=== PATIENT | male | born 1955 | race Caucasian/White ===

== ENCOUNTER 2020-10-26 12:10 | Outpatient (REF) | payer MEDICARE, OTHER, SELFPAY ==
[2020-10-26 13:57] LABS: Estimated Average Glucose 123 mg/dL; Hemoglobin A1c % 5.9 %
[2020-10-26 14:15] LABS: Anion Gap 12 (12-20); Blood Urea Nitrogen 21 mg/dL (9-16); Calcium 8.9 mg/dL (8.4-10.2); Carbon Dioxide 27 mmol/L (22-29); Chloride 105 mmol/L (96-108); Estimated Glomerular Filt Rate > 60; Glucose Random 92 mg/dL (60-115); Potassium 3.8 mmol/l (3.3-5.1); Sodium 140 mmol/L (135-145)
== END 2020-10-26 12:11 | disposition home or self-care (01) ==
LOC: HO.10HDL 12:10
PROVIDERS: PCP Internal Medicine; Visit Provider Internal Medicine
DX: I10 Essential (primary) hypertension (principal); R73.03 Prediabetes
CPT/HCPCS: 80048; 83036

== ENCOUNTER 2021-04-27 07:35 | Outpatient (REF) | payer MEDICARE, OTHER, SELFPAY ==
[2021-04-27 08:21] LABS: MANUAL DIFF FLAG NO
[2021-04-27 08:30] LABS: Basophils Absolute Auto 0.1 X10*3/uL (0.0-0.2); Basophils Percent Auto 0.7 % (0-2); Eosinophils Absolute Auto 0.1 X10*3/uL (0.0-0.4); Eosinophils Percent Auto 1.9 % (0-4); Hematocrit 40.8 % (42-52); Hemoglobin 13.4 g/dl (14.0-18.0); Imm Gran Abs Auto 0.02 X10*3/uL (0.00-0.03); Imm Gran Pct Auto 0.3 % (0.0-0.4); Lymphocytes Absolute Auto 1.3 X10*3/uL (1.2-4.9); Mean Corpuscular HGB Conc 32.8 g/dl (31.0-36.0); Mean Corpuscular Hemoglobin 29.6 pg (27.0-33.0); Mean Corpuscular Volume 90.3 fL (80-98); Mean Platelet Volume 10.5 fL (9.4-12.4); Monocytes Absolute Auto 0.7 X10*3/uL (0.1-1.2); Monocytes Percent Auto 9.4 % (2-11); Neutrophils Absolute Auto 5.1 X10*3/uL (2.0-8.3); Neutrophils Percent Auto 69.7 % (45-73); Platelet Count 231 X10*3/uL (160-400); Red Blood Count 4.52 X10*6/uL (4.60-5.80); Red Cell Distribution Width 12.7 % (11.0-16.0); White Blood Count 7.2 X10*3/uL (4.8-10.8)
[2021-04-27 08:50] LABS: Alanine Aminotransferase 26 U/L (0-40); Albumin Level 4.1 g/dL (3.5-5.0); Alkaline Phosphatase 115 U/L (39-117); Anion Gap 12 (12-20); Aspartate Amino Transferase 25 U/L (5-37); Bilirubin Total 0.4 mg/dL (0.0-1.0); Blood Urea Nitrogen 22 mg/dL (9-16); Calcium 9.4 mg/dL (8.4-10.2); Carbon Dioxide 26 mmol/L (22-29); Chloride 108 mmol/L (96-108); Cholesterol 168 mg/dL; Estimated Glomerular Filt Rate > 60; Glucose Random 112 mg/dL (60-115); HDL Cholesterol 38 mg/dL; LDL Cholesterol Calculated 74 mg/dl; Potassium 4.8 mmol/L (3.3-5.1); Sodium 141 mmol/L (135-145); Triglycerides 280 mg/dL
== END 2021-04-27 07:36 | disposition home or self-care (01) ==
LOC: HO.LAB 07:35
PROVIDERS: PCP Internal Medicine; Visit Provider Internal Medicine
DX: I10 Essential (primary) hypertension (principal); E78.00 Pure hypercholesterolemia, unspecified; K21.9 Gastro-esophageal reflux disease without esophagitis
CPT/HCPCS: 36415; 80053; 80061; 85025

== ENCOUNTER 2021-08-07 06:09 | Outpatient (REF) | payer MEDICARE, OTHER, SELFPAY ==
[2021-08-07 07:45] LABS: Alanine Aminotransferase 28 U/L (0-40); Alkaline Phosphatase 83 U/L (39-117); Anion Gap 11 (12-20); Aspartate Amino Transferase 21 U/L (5-37); Bilirubin Total 0.7 mg/dL (0.0-1.0); Blood Urea Nitrogen 19 mg/dL (9-16); Calcium 9.1 mg/dL (8.4-10.2); Carbon Dioxide 28 mmol/L (22-29); Chloride 108 mmol/L (96-108); Cholesterol 147 mg/dL; Estimated Glomerular Filt Rate > 60; Glucose Fasting 106 mg/dL (60-99); HDL Cholesterol 34 mg/dL; LDL Cholesterol Calculated 66 mg/dl; Sodium 143 mmol/L (135-145); Total Protein 5.8 g/dL (6.5-8.0); Triglycerides 239 mg/dL
== END 2021-08-07 06:10 | disposition home or self-care (01) ==
LOC: HO.LAB 06:09
PROVIDERS: PCP Internal Medicine; Visit Provider Internal Medicine
DX: E78.5 Hyperlipidemia, unspecified (principal)
CPT/HCPCS: 36415; 80053; 80061

== ENCOUNTER 2022-02-26 07:08 | Outpatient (REF) | payer MEDICARE, OTHER, SELFPAY ==
[2022-02-26 07:59] LABS: Alanine Aminotransferase 29 U/L (0-40); Albumin Level 4.1 g/dL (3.5-5.0); Alkaline Phosphatase 90 U/L (39-117); Anion Gap 10 (12-20); Aspartate Amino Transferase 22 U/L (5-37); Bilirubin Total 0.6 mg/dL (0.0-1.0); Blood Urea Nitrogen 17 mg/dL (9-16); Calcium 9.3 mg/dL (8.4-10.2); Carbon Dioxide 28 mmol/L (22-29); Chloride 108 mmol/L (96-108); Cholesterol 163 mg/dL; Estimated Glomerular Filt Rate > 60; Glucose Fasting 127 mg/dL (60-99); HDL Cholesterol 36 mg/dL; LDL Cholesterol Calculated 81 mg/dl; Potassium 4.4 mmol/L (3.3-5.1); Sodium 142 mmol/L (135-145); Triglycerides 234 mg/dL
== END 2022-02-26 07:09 | disposition home or self-care (01) ==
LOC: HO.LAB 07:08
PROVIDERS: PCP Internal Medicine; Visit Provider Internal Medicine
DX: I10 Essential (primary) hypertension (principal); E78.5 Hyperlipidemia, unspecified; K21.9 Gastro-esophageal reflux disease without esophagitis
CPT/HCPCS: 36415; 80053; 80061

== ENCOUNTER 2022-05-29 07:42 | Outpatient (REF) | payer MEDICARE, OTHER, SELFPAY ==
[2022-05-29 10:56] LABS: Estimated Average Glucose 117 mg/dL; Hemoglobin A1c % 5.7 %
[2022-05-29 11:01] LABS: Alanine Aminotransferase 29 U/L (0-40); Albumin Level 4.1 g/dL (3.5-5.0); Alkaline Phosphatase 89 U/L (39-117); Anion Gap 13 (12-20); Aspartate Amino Transferase 22 U/L (5-37); Bilirubin Total 0.4 mg/dL (0.0-1.0); Blood Urea Nitrogen 22 mg/dL (9-16); Calcium 9.1 mg/dL (8.4-10.2); Carbon Dioxide 24 mmol/L (22-29); Chloride 107 mmol/L (96-108); Estimated Glomerular Filt Rate > 60; Glucose Fasting 121 mg/dL (60-99); Potassium 4.2 mmol/L (3.3-5.1); Sodium 140 mmol/L (135-145); Total Protein 6.1 g/dL (6.5-8.0)
== END 2022-05-29 07:43 | disposition home or self-care (01) ==
LOC: HO.10HDL 07:42
PROVIDERS: Visit Provider Internal Medicine
DX: I10 Essential (primary) hypertension (principal); E78.00 Pure hypercholesterolemia, unspecified; R73.03 Prediabetes
CPT/HCPCS: 36415; 80053; 83036

== ENCOUNTER 2022-11-30 10:04 | Outpatient (REF) | payer MEDICARE, OTHER, SELFPAY ==
[2022-11-30 13:38] LABS: MANUAL DIFF FLAG NO
[2022-11-30 13:41] LABS: Basophils Absolute Auto 0.1 X10*3/uL (0.0-0.2); Basophils Percent Auto 0.7 % (0-2); Eosinophils Absolute Auto 0.1 X10*3/uL (0.0-0.4); Eosinophils Percent Auto 1.9 % (0-4); Hematocrit 41.2 % (42.0-52.0); Hemoglobin 13.6 g/dl (14.0-18.0); Imm Gran Abs Auto 0.03 X10*3/uL (0.00-0.03); Imm Gran Pct Auto 0.4 % (0.0-0.4); Lymphocytes Absolute Auto 1.4 X10*3/uL (1.2-4.9); Lymphocytes Percent Auto 19.4 % (20-40); Mean Corpuscular Hemoglobin 29.4 pg (27.0-33.0); Mean Platelet Volume 11.1 fL (9.4-12.4); Monocytes Absolute Auto 0.8 X10*3/uL (0.1-1.2); Monocytes Percent Auto 10.5 % (2-11); Neutrophils Absolute Auto 4.9 x10*3/uL (2.0-8.3); Neutrophils Percent Auto 67.1 % (45-73); Platelet Count 268 X10*3/uL (160-400); Red Blood Count 4.63 X10*6/uL (4.60-5.80); Red Cell Distribution Width 12.4 % (11.0-16.0); White Blood Count 7.2 X10*3/uL (4.8-10.8)
[2022-11-30 13:56] LABS: Estimated Average Glucose 126 mg/dL; Hemoglobin A1C 151.6877 umol/L
[2022-11-30 14:07] LABS: Anion Gap 13 (12-20); Blood Urea Nitrogen 21 mg/dL (9-16); Calcium 9.4 mg/dL (8.4-10.2); Carbon Dioxide 27 mmol/L (22-29); Chloride 107 mmol/L (96-108); Estimated Glomerular Filt Rate > 60; Glucose Random 107 mg/dL (60-115); Potassium 4.7 mmol/L (3.3-5.1); Sodium 142 mmol/L (135-145)
[2022-11-30 14:15] LABS: Thyroid Stimulating Hormone 1.93 uIU/mL (0.32-4.0)
[2022-11-30 14:25] LABS: Vitamin B12 489 pg/mL (200-900)
== END 2022-11-30 10:05 | disposition home or self-care (01) ==
LOC: HO.10HDL 10:04
PROVIDERS: Visit Provider Internal Medicine
DX: I10 Essential (primary) hypertension (principal); R53.83 Other fatigue; R73.03 Prediabetes; H92.02 Otalgia, left ear
CPT/HCPCS: 36415; 80048; 82607; 83036; 84443; 85025; 86140

== ENCOUNTER 2023-03-04 09:49 | Outpatient (REF) | payer MEDICARE, OTHER, SELFPAY ==
[2023-03-04 10:45] LABS: Estimated Average Glucose 128 mg/dL; Hemoglobin A1c % 6.1 %
[2023-03-04 11:07] LABS: Anion Gap 11 (12-20); Blood Urea Nitrogen 14 mg/dL (9-16); Calcium 8.8 mg/dL (8.4-10.2); Carbon Dioxide 26 mmol/L (22-29); Chloride 110 mmol/L (96-108); Estimated Glomerular Filt Rate > 60; Glucose Random 105 mg/dL (60-115); Potassium 4.6 mmol/L (3.3-5.1); Sodium 142 mmol/L (135-145)
== END 2023-03-04 09:50 | disposition home or self-care (01) ==
LOC: HO.10HDL 09:49
PROVIDERS: Visit Provider Internal Medicine
DX: I10 Essential (primary) hypertension (principal); R73.01 Impaired fasting glucose
CPT/HCPCS: 36415; 80048; 83036

== ENCOUNTER → 2023-06-25 13:47 | Outpatient (REF) | payer MEDICARE, OTHER, SELFPAY ==
--- NOTE | 2023-06-25 13:50 | CA_ITS ---
Transthoracic Echocardiogram Patient (Last, First, Middle): Andrea Wasserman E Gender: Male Date of : 1955 Age: 68 Procedure Date: 06/25/2023 Procedure Type: Transthoracic Echocardiogram Location: OP Height: 182.88 cm Weight: 112.49 kg BSA: 2.33 m2 Heart Rate: bpm BP: 140 / 92 mmHg Tag Meter Operator: AMADA Referring MD: Eliceo Garrison MD Symptoms: I10 HTN EDEMA Study Quality: Adequate with contrast ECG Rhythm: Sinus Conclusions: - The left ventricular systolic function is normal. The calculated ejection fraction is 63% by biplane method. - There is moderate septal and moderate basal asymmetric hypertrophy. - The left atrium is moderately dilated. - No obvious valvular pathology seen on this study. Findings Procedure Information Contrast agent, definity, is being given per protocol with complications as noted. The patient experienced back pain from contrast. Left Ventricle Normal left ventricular cavity size. There is mildly increased left ventricular wall thickness. The left ventricular systolic function is normal. The calculated ejection fraction is 63% by biplane method. There is no evidence of regional wall motion abnormalities. Evidence suggests grade I (mild) diastolic dysfunction. There is moderate septal and moderate basal asymmetric hypertrophy. Right Ventricle Normal right ventricular cavity size and systolic function. Atria The left atrium is moderately dilated. The right atrium is normal in size. Aortic Valve There is a normal trileaflet aortic valve. There is no aortic valve stenosis. There is trace (trivial) aortic valve regurgitation. Mitral Valve The mitral valve appears normal. There is trace mitral valve regurgitation. There is no mitral valve stenosis. Pulmonic Valve The pulmonic valve is likely normal. Tricuspid Valve There is trace tricuspid valve regurgitation. There is no evidence of pulmonary hypertension. Great Vessels The asc aorta is normal in size. Small plaque is seen in the sino tubular ridge. Venous The inferior vena cava is mildly dilated and collapses greater than 50% with inspiration. Pericardium/Pleural There is no evidence of pericardial effusion. Prior Study Comparison No significant change compared to prior study dated: 12/25/2003. Recommendations, Care & Conclusions No obvious valvular pathology seen on this study. Measurements 2D Linear Measurements IVSd: 1.30 0.6-0.9/0.6-1.0 cm LVIDd: 5.65 3.9-5.3/4.2-5.9 cm LVIDd Index: 2.42 2.4-3.2/2.2-3.1 cm/m2 LVIDs: 3.63 2.0-3.6 cm LVPWd: 1.05 0.7-1.1 cm LA Diam: 4.10 2.7-3.8/3.0-4.0 cm LAIDs Index: 1.76 1.5-2.3 cm/m2 LV Mass: 344.90 67-162/88-224 g LV Mass Index: 148.03 43-95/49-115 g/m2 LVOT Diam: 2.20 3.0+(-)1.3 cm 2D Systolic Function EF 4C: 55.10 >55% EF 2C: 68.50 >55% EF BiP: 62.70 >55% Mitral Valve MV Pk E: 0.56 MV PK A: 0.66 MV Decel Time: 301.00 E/A: 0.90 E'Lateral: 6.53 E'Medial: 5.66 E/E' Med: 9.90 E/E' Lat: 8.60 PHT: 88.00 MVA PHT: 2.50 Decel Llano: 1.86 Aortic Valve AoV Pk Tenzin: 1.14 AoV Mn Tenzin: 0.80 AoV VTI: 0.31 AoV Pk Grad: 5.00 Aov Mn Grad: 3.00 ANEUDY Cont.VTI: 3.34 LVOT LVOT Pk Tenzin: 1.08 LVOT Mn Tenzin: 0.74 LVOT VTI: 0.27 LVOT Pk Grad: 5.00 LVOT Mn Grad: 2.00 LVOT Diam: 2.20 LVOT Area: 3.80 Diastolic Function MV Pk E: 0.56 MV Pk A: 0.66 E/A: 0.90 E'Medial: 5.66 E/E' Med: 9.90 E' Laterial: 6.53 E/E' Lat: 8.60 Right Ventricle TAPSE (mm): 27.20 TVS' Tenzin: 16.00 Tricuspid Valve RA Press: 8.00 Great Vessels Aorta Sinus of Valsalva: 3.85 2.0-3.[address] Ridge: 3.03 1.7-3.4 cm Ao Asc: 3.70 2.1-3.4 cm Updated in Other Vendor System with Status of Final Dedrick Durán MD electronically signed on 06/26/2023 11:30:06 AM with status of Final
== END ==
LOC: HO.CARD 13:47
PROVIDERS: PCP Internal Medicine; Visit Provider Internal Medicine
DX: I10 Essential (primary) hypertension (principal); R60.0 Localized edema
CPT/HCPCS: 93306; Q9957

== ENCOUNTER → 2023-06-25 13:50 | Outpatient (BNV) | payer MEDICARE, OTHER, SELFPAY | PROVIDERS: PCP Internal Medicine; Visit Provider Internal Medicine | DX: I51.9 Heart disease, unspecified (principal) | CPT/HCPCS: 93306 ==

== ENCOUNTER 2023-10-16 09:06 | Outpatient (REF) | payer MEDICARE, OTHER, SELFPAY ==
[2023-10-16 10:52] LABS: Estimated Average Glucose 128 mg/dL; Hemoglobin A1c % 6.1 % (<6.0)
[2023-10-16 11:01] LABS: Anion Gap 10 (12-20); Blood Urea Nitrogen 19 mg/dL (9-16); Calcium 9.2 mg/dL (8.4-10.2); Carbon Dioxide 30 mmol/L (22-29); Chloride 104 mmol/L (96-108); Estimated Glomerular Filt Rate > 60; Glucose Random 123 mg/dL (60-115); Sodium 140 mmol/L (135-145)
== END 2023-10-16 09:07 | disposition home or self-care (01) ==
LOC: HO.10HDL 09:06
PROVIDERS: Visit Provider Internal Medicine
DX: I10 Essential (primary) hypertension (principal); R73.03 Prediabetes
CPT/HCPCS: 36415; 80048; 83036

== ENCOUNTER 2024-06-04 10:21 | Outpatient (REF) | payer MEDICARE, OTHER, SELFPAY ==
[2024-06-04 10:50] LABS: MANUAL DIFF FLAG NO
[2024-06-04 10:55] LABS: Basophils Absolute Auto 0.1 X10*3/uL (0.0-0.2); Basophils Percent Auto 1.2 % (0-2); Eosinophils Absolute Auto 0.1 X10*3/uL (0.0-0.4); Eosinophils Percent Auto 1.7 % (0-4); Hematocrit 40.2 % (42.0-52.0); Hemoglobin 13.9 g/dl (14.0-18.0); Imm Gran Abs Auto 0.03 X10*3/uL (0.00-0.03); Imm Gran Pct Auto 0.4 % (0.0-0.4); Lymphocytes Absolute Auto 1.6 X10*3/uL (1.2-4.9); Lymphocytes Percent Auto 20.8 % (20-40); Mean Corpuscular HGB Conc 34.6 g/dl (31.0-36.0); Mean Corpuscular Hemoglobin 30.6 pg (27.0-33.0); Mean Corpuscular Volume 88.5 fL (80.0-98.0); Mean Platelet Volume 10.3 fL (9.4-12.4); Monocytes Absolute Auto 0.8 X10*3/uL (0.1-1.2); Monocytes Percent Auto 10.1 % (2-11); Neutrophils Absolute Auto 5.1 x10*3/uL (2.0-8.3); Neutrophils Percent Auto 65.8 % (45-73); Platelet Count 235 X10*3/uL (160-400); Red Blood Count 4.54 X10*6/uL (4.60-5.80); Red Cell Distribution Width 13.3 % (11.0-16.0); White Blood Count 7.7 X10*3/uL (4.8-10.8)
[2024-06-04 11:01] LABS: Estimated Average Glucose 131 mg/dL; Hemoglobin A1c % 6.2 % (<6.0)
[2024-06-04 11:09] LABS: Anion Gap 13 (12-20); Blood Urea Nitrogen 23 mg/dL (9-16); Calcium 9.7 mg/dL (8.4-10.2); Carbon Dioxide 29 mmol/L (22-29); Chloride 105 mmol/L (96-108); Estimated Glomerular Filt Rate > 60; Glucose Random 109 mg/dL (60-115); Potassium 3.9 mmol/L (3.3-5.1); Sodium 143 mmol/L (135-145)
[2024-06-04 11:30] LABS: Creatinine Urine 111.34 mg/dL; Microalbum/Creatinine Ratio Ur 8.9 ug/mg cr (<30)
== END 2024-06-04 10:22 | disposition home or self-care (01) ==
LOC: HO.10HDL 10:21
PROVIDERS: Visit Provider Internal Medicine
DX: I10 Essential (primary) hypertension (principal); E78.00 Pure hypercholesterolemia, unspecified; R73.03 Prediabetes
CPT/HCPCS: 36415; 80048; 82043; 82570; 83036; 85025

== ENCOUNTER 2024-09-07 12:00 | Outpatient (REF) | payer MEDICARE, OTHER, SELFPAY ==
[2024-09-07 13:23] LABS: MANUAL DIFF FLAG NO
[2024-09-07 13:24] LABS: Appearance Urine Clear; Color Urine Yellow; Glucose Urine UA Negative (Negative); Leukocyte Esterase Urine Negative (Negative); Nitrite Urine Negative (Negative); Urine Blood Negative (Negative); Urine Ketones Negative (Negative); Urine Protein Negative (Neg-Trace)
[2024-09-07 13:32] LABS: Basophils Absolute Auto 0.1 X10*3/uL (0.0-0.2); Basophils Percent Auto 1.1 % (0-2); Eosinophils Absolute Auto 0.2 X10*3/uL (0.0-0.4); Eosinophils Percent Auto 2.1 % (0-4); Hematocrit 38.2 % (42.0-52.0); Hemoglobin 12.9 g/dl (14.0-18.0); Imm Gran Abs Auto 0.02 X10*3/uL (0.00-0.03); Imm Gran Pct Auto 0.3 % (0.0-0.4); Lymphocytes Absolute Auto 1.5 X10*3/uL (1.2-4.9); Mean Corpuscular HGB Conc 33.8 g/dl (31.0-36.0); Mean Corpuscular Hemoglobin 29.5 pg (27.0-33.0); Mean Corpuscular Volume 87.2 fL (80.0-98.0); Mean Platelet Volume 10.1 fL (9.4-12.4); Monocytes Absolute Auto 0.7 X10*3/uL (0.1-1.2); Monocytes Percent Auto 9.2 % (2-11); Neutrophils Absolute Auto 5.1 x10*3/uL (2.0-8.3); Neutrophils Percent Auto 67.3 % (45-73); Platelet Count 275 X10*3/uL (160-400); Red Blood Count 4.38 X10*6/uL (4.60-5.80); Red Cell Distribution Width 12.5 % (11.0-16.0); White Blood Count 7.5 X10*3/uL (4.8-10.8)
[2024-09-07 13:43] LABS: Estimated Average Glucose 137 mg/dL; Hemoglobin A1C 158.2599 umol/L; Hemoglobin A1c % 6.4 % (<6.0); Total Hemoglobin (HGBA1C) 3371.5849 umol/L
[2024-09-07 14:32] LABS: Alanine Aminotransferase 36 U/L (0-40); Alkaline Phosphatase 78 U/L (39-117); Anion Gap 11 (12-20); Aspartate Amino Transferase 27 U/L (5-37); Bilirubin Total 0.4 mg/dL (0.0-1.0); Blood Urea Nitrogen 23 mg/dL (9-16); Calcium 9.5 mg/dL (8.4-10.2); Carbon Dioxide 29 mmol/L (22-29); Chloride 107 mmol/L (96-108); Estimated Glomerular Filt Rate > 60; Glucose Random 123 mg/dL (60-115); Potassium 3.6 mmol/L (3.3-5.1); Sodium 143 mmol/L (135-145); Total Protein 6.2 g/dL (6.5-8.0)
[2024-09-07 14:54] LABS: Microalbumin Urine < 5.0 mg/L
== END 2024-09-07 12:01 | disposition home or self-care (01) ==
LOC: HO.10HDL 12:00
PROVIDERS: Visit Provider Internal Medicine
DX: I12.9 Hypertensive chronic kidney disease with stage 1 through stage 4 chronic kidney disease, or unspecified chronic kidney disease (principal); N18.9 Chronic kidney disease, unspecified; K21.9 Gastro-esophageal reflux disease without esophagitis; R73.03 Prediabetes
CPT/HCPCS: 36415; 80053; 81003; 82043; 82570; 83036; 85025

== ENCOUNTER 2025-01-22 07:15 | Day surgery (SDC) | payer MEDICARE, OTHER, SELFPAY ==
[2025-01-20 14:32] VITALS: BMI 32.8
--- NOTE | 2025-01-21 08:46 | P.CONAN_ITS ---
HPI - Anesthesia Eval Consult details Narrative: 69yo M for Colonoscopy Hx afib - no anticoag Follows [facility] cardiology. Last visit 12/2023 [facility] Past Medical History Medical History (Updated 01/20/25 @ 14:41 by Vanessa Mallory RN) Sleep apnea Choledocholithiasis Gallstones Hx of flexible sigmoidoscopy GERD (gastroesophageal reflux disease) IBS (irritable bowel syndrome) Hyperlipidemia Afib Hx of radiation therapy Prostate cancer HTN (hypertension) Tubular adenoma Surgical History Surgical History (Updated 01/20/25 @ 14:29 by Vanessa Mallory RN) H/O anal fistulotomy History of hernia surgery H/O radical prostatectomy H/O colonoscopy History of esophagogastroduodenoscopy (EGD) Meds Allergies Allergy/AdvReac Type Severity Reaction Status Date / Time perflutren AdvReac Back Pain Verified 06/25/23 17:30 Home Medications ?Medication ?Instructions ?Recorded ?Confirmed ?Last Taken ?Type acetaminophen 325 mg tablet 325 mg PO QID PRN Pain 01/20/25 01/20/25 Unknown History amlodipine 5 mg tablet 5 mg PO DAILY 01/20/25 01/20/25 Unknown History atenolol 50 mg tablet 50 mg DAILY 01/20/25 01/20/25 Unknown History atorvastatin 10 mg tablet 10 mg PO DAILY 01/20/25 01/20/25 Unknown History chlorthalidone 25 mg tablet 25 mg PO DAILY 01/20/25 01/20/25 Unknown History fenofibrate 54 mg tablet 54 mg PO DAILY 01/20/25 01/20/25 Unknown History losartan 100 mg tablet 100 mg PO DAILY 01/20/25 01/20/25 Unknown History omeprazole 40 mg capsule,delayed 40 mg PO DAILY 01/20/25 01/20/25 Unknown History release Exam Height,Weight and Vital Signs: Height 6 ft Weight 109.769 kg Narrative Narrative: ECHO 2022 Conclusions: - The left ventricular systolic function is normal. The calculated ejection fraction is 63% by biplane method. - There is moderate septal and moderate basal asymmetric hypertrophy. - The left atrium is moderately dilated. - No obvious valvular pathology seen on this study. Assessment and Plan Assessment Anesthesia Assessment: Chart Reviewed
[2025-01-22 07:56] VITALS: BMI 32.3
--- NOTE | 2025-01-22 08:04 | HO.ANESPROP2 ---
[facility] Past Medical History Medical History Sleep apnea Choledocholithiasis Gallstones Hx of flexible sigmoidoscopy GERD (gastroesophageal reflux disease) IBS (irritable bowel syndrome) Hyperlipidemia Afib Hx of radiation therapy Prostate cancer HTN (hypertension) Tubular adenoma Functional capacity: independent ambulation Family History Family history of problems with anesthesia: No Surgical History Surgical History Hx of appendectomy History of cholecystectomy History of surgery H/O anal fistulotomy History of hernia surgery H/O radical prostatectomy H/O colonoscopy History of esophagogastroduodenoscopy (EGD) History of Problems with Anesthesia: No Social History Social History Patient Tobacco Use Status: Former Tobacco user Use of substances other than those prescribed or required for medical reasons: No Are you DNR?: No Advance Directives: No Advance Directives Information Provided: Yes Recently lost weight without trying: No Nutrition Risks: No Nutritional Risk Meds Allergies Allergy/AdvReac Type Severity Reaction Status Date / Time perflutren AdvReac Back Pain Verified 06/25/23 17:30 Active Medications: Current Medications Lactated Ringer's (Lr) 1,000 mls @ 100 mls/hr IVCONT .Q10H TIM Sodium Biphosphate/Sodium Phosphate (Sodium Phosphate,[place]-Dibasic 133 Ml Enema) 133 ml ID ONCE PRN PRN Reason: Poor Colonoscopy Prep Results Home Medications ?Medication ?Instructions ?Recorded ?Confirmed ?Last Taken ?Type acetaminophen 325 mg tablet 325 mg PO QID PRN Pain 01/20/25 01/20/25 Unknown History amlodipine 5 mg tablet 5 mg PO DAILY 01/20/25 01/20/25 01/22/25 History atenolol 50 mg tablet 50 mg DAILY 01/20/25 01/20/25 01/22/25 History atorvastatin 10 mg tablet 10 mg PO DAILY 01/20/25 01/20/25 Unknown History chlorthalidone 25 mg tablet 25 mg PO DAILY 01/20/25 01/20/25 Unknown History fenofibrate 54 mg tablet 54 mg PO DAILY 01/20/25 01/20/25 Unknown History losartan 100 mg tablet 100 mg PO DAILY 01/20/25 01/20/25 01/22/25 History omeprazole 40 mg capsule,delayed 40 mg PO DAILY 01/20/25 01/20/25 Unknown History release Exam Height,Weight and Vital Signs: Height 6 ft Weight 108 kg Airway Mallampati Class: III TM Dist: >3cm Neck ROM: Full Heart: RRR Lungs: CTA Assessment and Plan Assessment Anesthesia Assessment: Anesthesia Plan Discussed and Chart Reviewed Final Anesthetic Review Family History of Problems with Anesthesia: No History of Problems with Anesthesia: No NPO: Yes ASA Class: III Final Preanesthetic Review: Meds/Allgs Chart Reviewed, Consent Obtained/Reviewed and Anes Risks/Benef Reviewed Patient Risk: Intermediate Procedure Risk: Low Anesthetic Plan Anesthetic Plan: MAC: Disposition: Standard PACU
[2025-01-22 08:09] VITALS: BP 137/70; PULSE 59; RESP 16; TEMP 36.2; O2SAT 96
[2025-01-22] MEDS: Lactated Ringers 1,000 ML 100 ML IVCONT (08:21)
--- NOTE | 2025-01-22 08:58 | HO.ANESPROP2 ---
[facility] Past Medical History Medical History Sleep apnea Choledocholithiasis Gallstones Hx of flexible sigmoidoscopy GERD (gastroesophageal reflux disease) IBS (irritable bowel syndrome) Hyperlipidemia Afib Hx of radiation therapy Prostate cancer HTN (hypertension) Tubular adenoma Functional capacity: independent ambulation Family History Family history of problems with anesthesia: No Surgical History Surgical History Hx of appendectomy History of cholecystectomy History of surgery H/O anal fistulotomy History of hernia surgery H/O radical prostatectomy H/O colonoscopy History of esophagogastroduodenoscopy (EGD) History of Problems with Anesthesia: No Social History Social History Patient Tobacco Use Status: Former Tobacco user Use of substances other than those prescribed or required for medical reasons: No Are you DNR?: No Advance Directives: No Advance Directives Information Provided: Yes Recently lost weight without trying: No Nutrition Risks: No Nutritional Risk Meds Allergies Allergy/AdvReac Type Severity Reaction Status Date / Time perflutren AdvReac Back Pain Verified 06/25/23 17:30 Active Medications: Current Medications Lactated Ringer's (Lr) 1,000 mls @ 100 mls/hr IVCONT .Q10H TIM Last Admin: 01/22/25 08:21 Dose: 100 mls/hr Naloxone HCl (Naloxone Hcl 0.4 Mg/Ml Vial) 0.04 mg IVPUSH Q5M PRN PRN Reason: Excessive sedation or RR < 8 Sodium Biphosphate/Sodium Phosphate (Sodium Phosphate,[place]-Dibasic 133 Ml Enema) 133 ml AL ONCE PRN PRN Reason: Poor Colonoscopy Prep Results Home Medications ?Medication ?Instructions ?Recorded ?Confirmed ?Last Taken ?Type acetaminophen 325 mg tablet 325 mg PO QID PRN Pain 01/20/25 01/20/25 Unknown History amlodipine 5 mg tablet 5 mg PO DAILY 01/20/25 01/20/25 01/22/25 History atenolol 50 mg tablet 50 mg DAILY 01/20/25 01/20/25 01/22/25 History atorvastatin 10 mg tablet 10 mg PO DAILY 01/20/25 01/20/25 Unknown History chlorthalidone 25 mg tablet 25 mg PO DAILY 01/20/25 01/20/25 Unknown History fenofibrate 54 mg tablet 54 mg PO DAILY 01/20/25 01/20/25 Unknown History losartan 100 mg tablet 100 mg PO DAILY 01/20/25 01/20/25 01/22/25 History omeprazole 40 mg capsule,delayed 40 mg PO DAILY 01/20/25 01/20/25 Unknown History release Exam Height,Weight and Vital Signs: Height 6 ft Weight 108 kg Last Vital Signs Temp 97.2 F 01/22/25 08:09 Pulse 59 01/22/25 08:09 Resp 16 01/22/25 08:09 BP 137/70 01/22/25 08:09 Pulse Ox 96 01/22/25 08:09 O2 Del Method Room Air 01/22/25 08:09 Airway Mallampati Class: III TM Dist: >3cm Neck ROM: Full Heart: RRR Lungs: CTA Assessment and Plan Assessment Anesthesia Assessment: Anesthesia Plan Discussed and Chart Reviewed Final Anesthetic Review Family History of Problems with Anesthesia: No History of Problems with Anesthesia: No NPO: Yes ASA Class: III Final Preanesthetic Review: Meds/Allgs Chart Reviewed, Consent Obtained/Reviewed and Anes Risks/Benef Reviewed Patient Risk: Intermediate Procedure Risk: Low Anesthetic Plan Anesthetic Plan: MAC: Disposition: Standard PACU
[2025-01-22 10:15] VITALS: BP 112/67; PULSE 60; RESP 18; TEMP 36.6; O2SAT 96
--- NOTE | 2025-01-22 10:19 | PM.OP ---
Brief Operative Note Date of Service: 01/22/25 Pre-op diagnosis: Screening Post-op diagnosis: other (Polyp) Procedure: Colonoscopy to the cecum and TI with bx/removal of polyp Surgeon: Osvaldo Birmingham MD Anesthesia: MAC Was an Application Specialist used for this Procedure?: No Estimated blood loss (mL): 2.0 Pathology: other (A. Polyp at 50cm) Condition: stable Disposition: PACU
[2025-01-22 10:30] VITALS: BP 103/76; PULSE 56; RESP 16; TEMP 36.6; O2SAT 95
--- NOTE | 2025-01-22 10:39 | OP_ITS ---
DATE OF SERVICE: 01/22/2025 SURGEON: Osvaldo Birmingham MD INDICATIONS: The patient presents for evaluation of personal history of tubular adenoma of the colon and colorectal cancer screening. Full consent has been obtained from him for this, including risks of bleeding and perforation. PREOPERATIVE DIAGNOSIS: POSTOPERATIVE DIAGNOSIS: PROCEDURE PERFORMED: Colonoscopy to the cecum and terminal ileum with biopsy, removal of polyp. ESTIMATED BLOOD LOSS: COMPLICATIONS: ANESTHESIA: Monitored anesthesia care. ASSISTANTS: SPECIMENS: PREOPERATIVE DIAGNOSES: Colorectal cancer screening and personal history of tubular adenoma of the colon. POSTOPERATIVE DIAGNOSES: Colorectal cancer screening and personal history of tubular adenoma of the colon, small colon polyp, diverticulosis, internal hemorrhoids, and some slight changes of radiation in the rectum with some telangiectasias. DESCRIPTION OF PROCEDURE: The patient was placed in the left lateral decubitus position. The digital rectal exam revealed no abnormalities. The Olympus video pediatric colonoscope was entered into the rectum and advanced easily to the cecum. Once in the cecum, I did identify normal-appearing cecal pouch with appendiceal orifice and a normal-appearing ileocecal valve. The terminal ileum was cannulated and appeared normal. The scope was withdrawn back in the colon. The entire cecum and ileocecal valve appeared normal. The scope was slowly withdrawn assessing all mucosal surfaces carefully. Preparation was excellent. At 50 cm, it was a flat, approximately 3 mm polyp, which was biopsied and completely removed with cold biopsy forceps. I did not visualize any sign of other polyps, colitis, or angiodysplasia. There was a mild amount of sigmoid diverticulosis. In the rectum, the scope was retroflexed visualizing internal hemorrhoids. Seen both in the forward viewing and retroflexed positions, were some changes consistent with his previous radiation with some nonbleeding telangiectasias and some slight pallor of the rectal mucosa. The scope was withdrawn from the patient. He tolerated the procedure well and was returned to recovery area in stable condition. IMPRESSION: 1. Colon polyp. 2. Diverticulosis. 3. Internal hemorrhoids. 4. Slight changes of radiation in the rectum. PLAN: The results of biopsy will be checked. I would recommend a repeat colonoscopy in 5 years for further screening. He will otherwise see me on a p.r.n. basis. MD NABILA Daley/ABRAHAM / [phone]
--- NOTE | 2025-01-22 12:53 | HO.POSTANES ---
Post Anesthesia Evaluation Post Anesthesia Evaluation Date of Service: 01/22/25 Vital Signs: Vital Signs Temp Pulse Resp BP Pulse Ox O2 Del Method 01/22/25 10:30 97.8 F 56 16 103/76 95 Room Air 01/22/25 10:15 97.8 F 60 18 112/67 96 Room Air 01/22/25 08:09 97.2 F 59 16 137/70 96 Room Air Anesthesia: Monitored Mental Status: Awake Pain Control: Satisfactory Nausea/Vomiting: None Hydration: Adequate Anesthesia-Related Issues: No Anes. Related Issues
== END 2025-01-22 10:59 | disposition home or self-care (01) ==
PROVIDERS: PCP Internal Medicine; Visit Provider Internal Medicine
PROC: 0DJD8ZZ Inspection of Lower Intestinal Tract, Via Natural or Artificial Opening Endoscopic (ICD-10-PCS; CPT 45378; principal; 2025-01-22 09:30)
DX: Z12.11 Encounter for screening for malignant neoplasm of colon (principal); Z86.0101 Personal history of adenomatous and serrated colon polyps; D12.5 Benign neoplasm of sigmoid colon; K57.30 Diverticulosis of large intestine without perforation or abscess without bleeding; K64.8 Other hemorrhoids; K58.9 Irritable bowel syndrome, unspecified; Z85.46 Personal history of malignant neoplasm of prostate; K62.7 Radiation proctitis; Y84.2 Radiological procedure and radiotherapy as the cause of abnormal reaction of the patient, or of later complication, without mention of misadventure at the time of the procedure; K21.9 Gastro-esophageal reflux disease without esophagitis; K90.89 Other intestinal malabsorption; I10 Essential (primary) hypertension; E78.5 Hyperlipidemia, unspecified; Z79.899 Other long term (current) drug therapy; Z90.49 Acquired absence of other specified parts of digestive tract; Z98.890 Other specified postprocedural states; Z87.891 Personal history of nicotine dependence
CPT/HCPCS: 45380; 88305; J2003; J2704

== ENCOUNTER 2025-03-15 09:17 | Outpatient (AMB) | payer MEDICARE, OTHER, SELFPAY ==
--- NOTE | 2025-03-15 09:22 | MHC.PC.OV ---
Vital Signs 03/15/25 09:25 Height 6 ft Weight 237 lb BMI 32.1 BP 122/76 Blood Pressure Location Lt brachial Position Sitting Pulse 53 Pulse Source Pulse Oximeter Temp 97.2 F Temp Source Axillary Pulse Oximetry (%) 96 Oxygen Delivery Method Room Air Intake Visit Reasons: Routine Sweep Molder Required: No Accompanied by: Self / Same As Patient Allergies perflutren Adverse Reaction (Verified 03/15/25 09:23) Back Pain Tobacco use date assessed: 03/15/25 Fall risk assessment: No Falls in past year Last assessed Fall Risk: 03/15/25 Dental Screening Dental Screen Date: 03/15/25 Did you have a dental visit in the last 12 months?: Yes Did you have a dental problem in the last 6 months where you did not have access to dental care?: No PFSH Medical History (Updated 03/15/25 @ 09:58 by Stoney Tarango MD) Sleep apnea Choledocholithiasis Gallstones Hx of flexible sigmoidoscopy GERD (gastroesophageal reflux disease) IBS (irritable bowel syndrome) Hyperlipidemia Afib Hx of radiation therapy Prostate cancer HTN (hypertension) Tubular adenoma Surgical History Hx of appendectomy History of cholecystectomy History of surgery H/O anal fistulotomy History of hernia surgery H/O radical prostatectomy H/O colonoscopy (~01/22/25) History of esophagogastroduodenoscopy (EGD) Family History Mother Brain cancer Father Prostate cancer Social History Housing: House Patient Tobacco Use Status: Former Tobacco user e-Cigarette/Vaping Use: Former Use service: No Current occupational status: retired Cognitive needs: No Hearing needs: No Vision needs: Yes (reading glasses) Questionnaire PHQ-9 Over the last 2 weeks, how often have you been bothered by any of the following problems? 1. Little interest or pleasure in doing things: not at all 2. Feeling down, depressed, or hopeless: not at all 3. Trouble falling or staying asleep, or sleeping too much: not at all 4. Feeling tired or having little energy: not at all 5. Poor appetite or overeating: not at all 6. Feeling bad about yourself - or that you are a failure or have let yourself or your family down: not at all 7. Trouble concentrating on things, such as reading the newspaper or watching television: not at all 8. Moving or speaking so slowly that other people could have noticed. Or the opposite - being so fidgety or restless that you have been moving around a lot more than usual: not at all 9. Thoughts that you would be better off or of hurting yourself in some way: not at all Total score: 0 Depression Screening Interpretation: Negative Depression Screening Done: Yes Source: Developed by Drs. Osvaldo Rose, Yu Solis, Vernon Hernandez and colleagues, with an educational justice from [employer]. Thrive Questionnaire Date Thrive assessed: 03/15/25 I am a: Patient Within the past 12 months, did the food you bought not last and you didn't have the money to get more?: Never true Within the past 12 months, did you worry whether your food would run out before you got money to buy more?: Never true Do you have trouble paying for medicines?: No Do you have trouble getting transportation to medical appointments?: No Do you have trouble paying your heating and electricity bill?: No Do you have trouble taking care of your child, family member or friend?: No Do you have trouble with day-to-day activities such as bathing, preparing meals, shopping, managing finances, etc.?: No Are you currently unemployed and looking for a job?: No Are you interested in more education?: No Currently or been in a relationship where the following occur: No concerns reported THRIVE Score: 0 AUDIT C Alcohol Use Questionnaire (AUDIT-C) 1. How often do you have a drink containing alcohol?: Monthly or less 2. How many drinks containing alcohol do you have on a typical day when you are drinking?: 1 or 2 3. How often do you have six or more drinks on one occasion?: Less than monthly Total Score: 2 JORGE-7 AMB Questionnaire JORGE-7 Date JORGE - 7 assessed: 03/15/25 Feeling nervous, anxious, or on edge: 0 = Not at all Not being able to stop or control worryin = Not at all Worrying too much about different things: 0 = Not at all Trouble relaxin = Not at all Being so restless that it is hard to sit still: 0 = Not at all Becoming easily annoyed or irritable: 0 = Not at all Feeling afraid as if something awful might happen: 0 = Not at all Total JORGE-7 score (0-4 normal; 5-9 mild; 10-14 moderate; 15-21 severe): 0 Source: Developed by Drs. Osvaldo Rose, Yu Solis, Vernon Hernandez and colleagues, with an educational justice from [employer]. Physical exam (Primary Care) Vital Signs: Last Vital Signs Temp 97.2 F 03/15/25 09:25 Pulse 53 03/15/25 09:25 BP 122/76 03/15/25 09:25 Pulse Ox 96 03/15/25 09:25 Oxygen Delivery Method Room Air 03/15/25 09:25 Care Plan Goal for BP management: BP in range. BMI result Body Mass Index 32.1 BMI Assessment/Plan discussion: High BMI High, discussed plan: lifestyle, weight reduction and dietary Tobacco/Smoking Status: Tobacco use Status Tobacco use date assessed 03/15/25 03/15/25 09:24 Patient Tobacco Use Status Former Tobacco user 03/15/25 09:34 e-Cigarette/Vaping Use Former Use 03/15/25 09:24 PHQ-9: PHQ-9 Score PHQ-9: Total score 0 03/15/25 09:24 Depression Screening Interpretation: Negative Thrive Assessment: Date of Thrive Assessment Date Thrive assessed 03/15/25 03/15/25 09:24 Currently or been in a relationship where the following occur: No concerns reported Advance Care Planning discussion: Exists, not on file Date of discussion: 03/15/25 Who was present: Patient Forms completed: MOLST Actual minutes spent: 5 Coding Level of Care Code New Pt Level 4 (78647) Complex EM visit Add On G2211 Diagnoses HTN (hypertension) I10 Hyperlipidemia E78.5 Additional Codes Vital Signs *Quality* - Advance Care Planning discussion: Exists, not on file ([id number]) Assessment & Plan Assessment & Plan (1) HTN (hypertension): Code(s): I10 - Essential (primary) hypertension Category: Medical Plan: BP is in range. Continue meds at same dosage (2) Hyperlipidemia: Code(s): E78.5 - Hyperlipidemia, unspecified Category: Medical Plan: BW ordered. Will call with results. Anxiety med called in. Plan History of Present Illness The patient is a 69-year-old male presenting for a follow-up visit concerning management of his history of prostate cancer and anxiety. He has previously been treated for prostate cancer with both radiation and surgery, maintaining regular follow-up appointments with his oncologist, Dr. Rod. For anxiety management, the patient utilizes lorazepam sparingly, particularly during acute anxiety episodes, and has expressed the need for a refill. In the past, instances of severe anxiety have led to hospital visits, but these episodes are currently managed on an as-needed basis with medication. Lorazepam is taken approximately once per month, dependent on the patient?s anxiety levels. Social History - Employment: Retired from the [employer]. - Living situation: Resides with his . - Activity level: Physically active; enjoys playing golf weekly and walks regularly. - Dietary habits: Reports no significant weight changes aside from gradual weight loss due to increased walking. - Transportation: Drives but avoids driving at night. Review of Systems - Gastrointestinal: Reports excess gas. - Psychiatric: Reports episodes of anxiety and occasional attacks. - Genitourinary: Denies weight loss but notes gradual weight loss associated with increased walking and a history of prostate cancer treatment. Physical Exam General: Cooperative and healthy appearing Nutritional Appearance: Well nourished Orientation/consciousness: Patient oriented x3 Limitations: No limitations Head: Normal to inspection General: Appearance normal, both eyes and all related structures Neck: Normal visual inspection Chest: Normal palpation of entire chest wall Respiratory: Normal respiratory effort Neurology: Patient oriented x3 Results Plan The patient's prostate cancer will continue to be managed with ongoing follow-up appointments and injections under the care of Dr. Rod. Ordering blood work will help monitor the patient's condition and manage any ongoing symptoms. The anxiety will be managed with an as-needed refill of lorazepam, contingent on the frequency and severity of anxiety attacks. Monitoring will ensure the current management strategy remains effective. Patient was informed and verbally consented to the use of an ambient scribe for clinic note documentation during this visit. Discussion Notes I discussed with the patient the ongoing management of his prostate cancer, emphasizing the importance of routine follow-ups with his oncologist, Dr. Rod. The patient is aware of the symptoms related to treatment, such as excessive sweating, and consents to continue the current therapeutic approach. Regarding his anxiety, I advised that a refill prescription for lorazepam will be provided to ensure he has medication available for acute episodes. The patient agreed to maintain frequent communication regarding his anxiety symptoms and the efficacy of the current management plan. Patient Instructions - Follow up with Dr. Rod for prostate cancer management. - Complete blood work as discussed?plan to schedule it when convenient. - Take lorazepam as needed for anxiety; refill has been provided during this visit. - Engage in regular physical activity and monitor any changes in health. - Return for a follow-up visit in six months or sooner if symptoms change or worsen.
[2025-03-15 09:25] VITALS: BP 122/76; PULSE 53; TEMP 36.2; O2SAT 96; BMI 32.1
--- OUTSIDE RECORDS SUMMARY | 2025-03-15 10:11 | XMS_ITS | Patient Health Record ---
Author Organization [facility] Freddy tamia Keene Address [address] [place] [address] Care Team Providers Care Whipped Topping Supervisor Name Role Phone Eliceo Garrison MD Primary Care Provider [facility] Unavailable [phone] Allergies No Known Allergies Reason For Referral No Information Medications Medication SIG (Take, Route, Frequency, Duration) Notes Start Date End Date Status Fenofibrate Active Prevacid Active Atorvastatin Calcium Active Atenolol 50 MG 1 tablet Orally Once a day for 30 day(s) Active Night Splint AFO - L1930 as directed 05/27/2023 Active Physical Therapy . . . 2-3x/week for 3-4 weeks Active Feldene 20 MG 1 capsule with food Orally Once a day for 30 day(s) 07/08/2023 Active Social History Tobacco Use: Social History Observation Description Date Details (start date - stop date) Never Smoker NA - NA Tobacco Use/Smoking Question Answer Notes Are you a: nonsmoker Additional Findings: Tobacco Non-User Current no n-smoker Alcohol Screen Question Answer Notes Did you have a drink containing alcohol in the p ast year? Yes Points 0 Interpretation Negative Tobacco use other than smoking: Question Answer Notes Are you an other tobacco user? No Problems Problem Type SNOMED Code ICD Code Onset Dates Problem Status W/U Status Risk Notes Problem Acquired hammer toe of right foot ([id number]) Other hammer toe(s) (acquired), right foot (M20.41) Active confirmed Plan Of Treatment Pending Test Test Name Order Date X ray : Foot, left 3V 05/27/2023 X ray : Foot, right 3V 05/27/2023 Insurance Providers Payer Name Payer Address Payer Phone Subscriber Number Group Number Insured Name Patient Relationship to Insured Coverage Start Date Coverage End Date Medicare [employer] [address] [place] [address] [id number] Andrea Wasserman Self - patient is the insured [facility] [address] [facility] [place] [id number] Andrea Wasserman Self - patient is the insured Medical (General) History Medical History History ICD Code Anxiety Measles Chicken pox Surgical History Surgery Date(Month/Year)
--- OUTSIDE RECORDS SUMMARY | 2025-03-15 10:11 | XMS_ITS | Encounter Summary ---
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 This section includes the names of all active insurance providers for the patient. Insurance Provider Type of Coverage Plan Name Start of Policy Coverage End of Policy Coverage Group Number Member ID Insurance Provider's Telephone Number Policy Pennington's Name Patient's Relationship to Policy Pennington [employer] [place] [employer] [address] Jun 18, 2018 [id number] FIELDYOSEF RGE PATIENT MEDICARE (WNR) MEDICARE (M) PART A Jun 18, 2018 PART A [id number] ,YOSEF RGE PATIENT MEDICARE (WNR) MEDICARE (M) PART B Jun 18, 2018 PART B [id number] ,YOSEF RGE PATIENT Selected Encounter This section includes the information on record at [place] for the Encounter. Date/Time Encounter Type Encounter Description Reason Provider Source Jan 18, 2025 08:00 AM OFFICE O/P EST MOD 30 MIN OPTOMETRY ICD-10-CM L71.8 Other FRANKLIN Magallon Encounter Template Text not used by [place] Assessments - Encounter Diagnoses This section includes the primary and secondary diagnoses documented for the Encounter. Date/Time Primary/Secondary Diagnosis Diagnosis Name Provider Source Feb 05, 2025 10:14 AM PRIMARY Other rosacea LANA THORNTON [facility] [place] [facility] Feb 05, 2025 10:14 AM SECONDARY Combined forms of age-related cataract, bilateral LANA THORNTON [facility] [place] [facility] Feb 05, 2025 10:14 AM SECONDARY Dry eye syndrome of bilateral lacrimal glands LANA THORNTON [facility] [place] [facility] Feb 05, 2025 10:14 AM SECONDARY Meibomian gland dysfnct left eye, upper and lower eyelids LANA THORNTON [facility] [place] [facility] Feb 05, 2025 10:14 AM SECONDARY Meibomian gland dysfnct right eye, upper and lower eyelids LANA THORNTON [facility] [place] [facility] Feb 05, 2025 10:14 AM SECONDARY Other chronic allergic conjunctivitis LANA THORNTON [facility] [place] [facility] Social History: Smoking Status (Most current) and Tobacco Use (All prior to encounter date) This section includes the most current, and the historical, smoking and tobacco- related health factors from the [place] facility where the Encounter took place. Current Smoking Status This section includes the most current smoking, or tobacco-related health factor, from the [place] facility where the Encounter took place. Date/Time Current Smoking Status Comment Randall sen Nov 30, 2024 08:30 AM VA-TOBACCO USE FOR PATRIC CIGARETTES [facility] Tobacco Use History This section includes a history of the smoking, or tobacco-related health factors, that were collected on or before the date of the Encounter. The data comes from the [place] facility where the Encounter took place. Date/Time Smoking Status/Tobacco Use Comment Valentin anders Nov 30, 2024 08:30 AM VA-TOBACCO USE FOR PATRIC CIGARETTES [facility] [place] [facility] Dec 09, 2023 10:00 AM VA-TOBACCO FOR[facility] Dec 09, 2023 10:00 AM VA-TOBACCO QUIT 15 YRS OR MORE [facility] [place] [facility] Aug 07, 2022 08:30 AM VA-TOBACCO NEVER USED [facility] [place] [facility] Jun 23, 2021 09:30 AM VA-TOBACCO NEVER USED [facility] [place] [facility] Mar 07, 2020 12:58 PM VA-TOBACCO FORMER USER [facility] [place] [facility] Mar 07, 2020 12:58 PM VA-TOBACCO QUIT 15 YRS OR MORE [facility] [place] [facility] Feb 18, 2019 09:35 AM VA-TOBACCO FORMER USER [facility] [place] [facility] Feb 18, 2019 09:35 AM VA-TOBACCO QUIT 15 YRS OR MORE [facility] [place] [facility] Mar 07, 2018 10:51 AM QUIT TOBACCO USE > 7 YEARS AGO 40 years ago [facility] Advance Directives: All historical and current Section Date Range: From patient's date of to the date document was created. This section includes ALL of a patient's completed or amended VA Advance and Rescinded Directives. The entries below indicate that a directive exists for the patient, but an actual copy is not included with this document. The data comes from all [place] facilities. Date Advance Directives Provider Source Jan 31, 2021 ADVANCE DIRECTIVE NOAH LONG [facility] Encounter Notes: All associated encounter notes This section contains the clinical notes associated to the Encounter. Date/Time Encounter Note(s) Provider Source Jan 18, 2025 10:20 AM OPTOMETRY CONSULT: LOCAL TITLE: CONSULT REPORT/OPTOMETRY STANDARD TITLE: OPTOMETRY CONSULT DATE OF NOTE: JAN 18, 2025@10:20 ENTRY DATE: JAN 18, 2025@10:20:55 AUTHOR: LUIS THORNTON EXP COSIGNER: URGENCY: STATUS: COMPLETED I saw this patient in conjunction with the student and agree to the stated findings and plan as noted below after reviewing both the history and repeating skinner elements of the physical exam now. Patient last seen July 10, 2024 presents today complaining of ongoing issues with itchy eyes as well as mucoid discharge. He has not been using lubricating drops on a regular basis but has been using ketotifenop twice a day with minimal improvement in his symptoms of ocular itching, foreign body sensation as well as mucoid discharge. 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 Tear break-up time and tear meniscus is reduced each eye. Renew lubricating drops to be used 3-6 times a day. Chronic allergic conjunctivitis with minimal effect with ketotifen a day each eye. Discontinue ketotifen start Patanol twice a day each eye instead. Bilateral nuclear sclerotic cataracts functioning well visually at present. Plan: Patient education as noted above reviewed exam findings now. Discussed how ocular dryness exacerbates chronic allergic conjunctivitis. 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 He also understands that the bioburden of the allergen remains in contact for longer against the ocular surface and people with dry eye disease and that is why timely and frequent use of lubricating drops is beneficial by reducing the bioburden of allergen against the eye as well as rewetting the ocular surface. Lubricating drops renewed now for mail out with recommendation to be used 3-6 times a day each eye. Discontinue Ketotifen and start Patanol twice a day each eye Keep scheduled follow-up for comprehensive exam late June 2025 or sooner if need be. Ophthalmic medication: Order Patanol 1 drop twice a day each eye Renew lubricating drops to be used 3-4 times a day each eye Discontinue Ketotifen each eye. Total time spent reviewing previous records, examining and counseling patient as well as entering orders with medical decision making. 25 minutes EYE: Visual Function Reminder: Normal Vision: 20/25 or better: Unspecified disorder of refraction or accommodation (367.9). Medication Reconciliation: Outpatient: Has the patient been taking medications as documented in the EMLR? YES: The patient has been taking medications as documented in the EMLR. Essential Medication List for Review used to complete this medication reconciliation. INCLUDED IN THIS LIST: Alphabetical list of active outpatient prescriptions dispensed from this VA (local) and dispensed from another [place] or [facility] facility (remote) as well as inpatient orders (local, pending and active), local clinic medications, locally documented non-VA medications, and local prescriptions that have or been discontinued in the past 90 days. - All changes in medications, including all non-VA/Herbal/OTC medications were entered into CPRS. Changes: Patanol twice a day each eye - If there were any medications the patient should no longer take, they were discontinued. D/C'd meds: KetotifenTwice a day each eye - The patient/caregiver was instructed to update this list, discard old lists, and take this list to the next appointment, whether with a VA or non-VA provider. JLV Link Data on this list may not be complete. Please check JLV. Allergies/ADRs (Tool #5) FACILITY ALLERGY/ADR -------- No Remote Allergy/ADR Data available for this patient [facility] [place] [facility] No Known Allergies Med Recon NoGlossary (Tool #1) INCLUDED IN THIS LIST: Alphabetical list of active outpatient prescriptions dispensed from this [place] (local) and dispensed from another [place] or [facility] facility (remote) as well as inpatient orders (local pending and active), local clinic medications, locally documented non-VA medications, and local prescriptions that have or been discontinued in the past 90 days. Non-VA Meds Last Documented On: Dec 09, 2023 NOTE The display of VA prescriptions dispensed from another VA or [facility] facility (remote) is limited to active outpatient prescription entries matched to National Drug File at the originating site and may not include some items such as investigational drugs, compounds, etc. NOT INCLUDED IN THIS LIST: Medications self-entered by the patient into personal health records (i.e. [employer]) are NOT included in this list. Non-VA medications documented outside this [place], remote inpatient orders (regardless of status) and remote clinic medications are NOT included in this list. The patient and provider must always discuss medications the patient is taking, regardless of where the medication was dispensed or obtained. Non-VA AMLODIPINE BESYLATE 10MG TAB TAKE ONE TABLET BY MOUTH ONCE DAILY Medication prescribed by Non-VA provider. recent change and increase of medication per non V ADR CROA Non-VA ASPIRIN 81MG EC TAB TAKE ONE TABLET BY MOUTH ONCE DAILY Medication prescribed by Non-VA provider. Indication: FOR MYOCARDIAL REINFARCTION PREVENTION Non-VA ATENOLOL 50MG TAB TAKE ONE TABLET BY MOUTH DAILY Medication prescribed by Non-VA provider. Per DR HUDSON / Patient 03/07/18 Non-VA ATORVASTATIN CALCIUM 20MG TAB TAKE ONE-HALF TABLET BY MOUTH ONCE DAILY Non-VA medication recommended by VA provider. Medication prescribed by Non-VA provider. per DR HUDSON / confirmed by pt OUTPT CARBOXYMETHYLCELLULOSE NA 0.5% OPH SOLN (Status = Discontinued) INSTILL 1 DROP INTO EACH EYE FOUR TIMES A DAY FOR DRY EYE Rx# [id number] Last Released: 07/16/24 Qty/Days Supply: Rx Expiration Date: 07/11/25 Refills Remainin Indication: FOR DRY EYE OUTPT CARBOXYMETHYLCELLULOSE NA 0.5% OPH SOLN (Status = Active/Suspended) INSTILL 1 DROP INTO EACH EYE FOUR TIMES A DAY FOR DRY EYE Rx# [id number] Last Released: Qty/Days Supply: Rx Expiration Date: 01/19/26 Refills Remainin Indication: FOR DRY EYE OUTPT CETIRIZINE HCL 10MG TAB (Status = Active) TAKE ONE TABLET BY MOUTH ONCE DAILY FOR ALLERGIES Rx# [id number] Last Released: 12/02/24 Qty/Days Supply: Rx Expiration Date: 12/01/25 Refills Remainin Indication: FOR ALLERGIES Non-VA CHLORTHALIDONE 25MG TAB TAKE ONE TABLET BY MOUTH ONCE DAILY Medication prescribed by Non-VA provider. Non-VA FENOFIBRATE 54MG TAB TAKE ONE TABLET BY MOUTH ONCE DAILY Medication prescribed by Non-VA provider. OUTPT FLUTICASONE PROP 50MCG 120D NASAL INHL (Status = Active) INSTILL 2 SPRAYS INTO EACH NOSTRIL ONCE DAILY FOR NASAL IRRITATION/INFLAMMATION Rx# [id number] Last Released: 12/02/24 Qty/Days Supply: Rx Expiration Date: 12/01/25 Refills Remainin Indication: FOR NASAL IRRITATION/INFLAMMATION OUTPT KETOTIFEN 0.025% OPH SOLN (Status = Discontinued) INSTILL 1 DROP INTO EACH EYE TWICE DAILY FOR ALLERGIC CONJUNCTIVITIS (IF YOU WEAR CONTACT LENSES, WAIT 10 MINUTES BEFORE INSERTING LENSES) Rx# [id number] Last Released: 12/02/24 Qty/Days Supply: Rx Expiration Date: 12/01/25 Refills Remainin Indication: FOR ALLERGIC CONJUNCTIVITIS Non-VA LOSARTAN 50MG TAB TAKE ONE TABLET BY MOUTH Sep 07, 2019 Non-VA medication recommended by VA provider. Medication prescribed by Non-VA provider. per patient rport only OUTPT OLOPATADINE HCL 0.1% OPH SOLN (Status = Active/Suspended) INSTILL 1 DROP INTO EACH EYE TWICE DAILY FOR ALLERGIC CONJUNCTIVITIS Rx# [id number] Last Released: QtDays Supply: Rx Expiration Date: 01/19/26 Refills Remainin Indication: FOR ALLERGIC CONJUNCTIVITIS Non-VA OMEPRAZOLE 20MG EC CAP TAKE 2 CAPSULES BY MOUTH EVERY MORNING 30 MINUTES BEFORE BREAKFAST Medication prescribed by Non-VA provider. per DR HUDSON / confirmed by pt SUPPLIES OUTPT INCONT LINER DEPEND GUARDS (Status = ) USE 1 PAD TOPICALLY TWICE DAILY NEEDED Rx# [id number] Last Released: 10/02/24 Qty/Days Supply: Rx Expiration Date: 12/09/24 Refills Remainin Indication: INCONTINENCE Declines printed copy of medication list now. /juanpablo/ Luis R Olga OD CHIEF OF OPTOMETRY Signed: 01/18/2025 15:06 LUIS THORNTON [facility] [place] [facility] Jan 18, 2025 07:16 AM OPTOMETRY NOTE: LOCAL TITLE: OPTOMETRY NOTE STANDARD TITLE: OPTOMETRY NOTE DATE OF NOTE: JAN 18, 2025@07:16 ENTRY DATE: JAN 18, 2025@07:16:26 AUTHOR: XAVIER MIRANDA EXP COSIGNER: LUIS THORNTON URGENCY: STATUS: COMPLETED Active problems - Computerized Problem List is the source for the followin. Chronic allergic conjunctivitis 2. Pain in right foot 3. Prediabetes 4. Urine incontinence 5. Ex-heavy tobacco smoker 6. Chronic mucocutaneous herpes simplex infection 7. History of surgery 8. Joint movement restrained 9. HTN-Hypertension ([facility] [id number]) 10. Mixed Hyperlipidemia ([facility] [id number]) 11. Anxiety ([facility] [id number]) 12. Unilateral Inguinal Hernia ([facility] [id number]) 13. Prostate Cancer ([facility] [id number]) 14. Erectile Dysfunction ([facility] [id number]) 15. Urgency - urination 16. Under care of multiple providers Active Outpatient Medications (including Supplies): Active Outpatient Medications Status 1) CARBOXYMETHYLCELLULOSE NA 0.5% OPH SOLN INSTILL 1 DROP INTO ACTIVE EACH EYE FOUR TIMES A DAY Indication: FOR DRY EYE 2) CETIRIZINE HCL 10MG TAB TAKE ONE TABLET BY MOUTH ONCE DAILY ACTIVE Indication: FOR ALLERGIES 3) FLUTICASONE PROP 50MCG 120D NASAL INHL INSTILL 2 SPRAYS INTO ACTIVE EACH NOSTRIL ONCE DAILY Indication: FOR NASAL IRRITATION/INFLAMMATION 4) KETOTIFEN 0.025% OPH SOLN INSTILL 1 DROP INTO EACH EYE TWICE ACTIVE DAILY (IF YOU WEAR CONTACT LENSES, WAIT 10 MINUTES BEFORE INSERTING LENSES) Indication: FOR ALLERGIC CONJUNCTIVITIS Active Non-VA Medications Status 1) Non-VA AMLODIPINE BESYLATE 10MG TAB 10MG BY MOUTH ONCE DAILY ACTIVE 2) Non-VA ASPIRIN 81MG EC TAB 81MG BY MOUTH ONCE DAILY ACTIVE Indication: FOR MYOCARDIAL REINFARCTION PREVENTION 3) Non-VA ATENOLOL 50MG TAB 50MG BY MOUTH DAILY ACTIVE 4) Non-VA ATORVASTATIN CALCIUM 20MG TAB 10MG BY MOUTH ONCE ACTIVE DAILY 5) Non-VA CHLORTHALIDONE 25MG TAB 25MG BY MOUTH ONCE DAILY ACTIVE 6) Non-VA FENOFIBRATE 54MG TAB 54MG BY MOUTH ONCE DAILY ACTIVE 7) Non-VA LOSARTAN 50MG TAB 50MG BY MOUTH ACTIVE 8) Non-VA OMEPRAZOLE 20MG EC CAP 40MG BY MOUTH EVERY MORNING 30 ACTIVE MINUTES BEFORE BREAKFAST 12 Total Medications Allergies: Patient has answered NKA All medications including those prescribed by outside VA's, community providers, and all OTC meds were reviewed and reconciled with patient to the best of their abilities. This 69 year old MALE is seen today for problem focus exam TERRENCE: 07/10/24 Chief Complaint: Itchy eyes with slight mucus discharged, feeling scratchy all the time. Also complains of blurry vision comes and goes with blinks. He only remembers using Refresh BID OU but never uses the Ketotifen at all. This has been going on for the past 3-4mo and denied using any new products such as shampoo/lotion/laundry detergent/bed sheet... OHx: 1. Localized VF defect OD 2. KARI OU 3. Combined cataracts OU 4. RE and presbyopia OU Ocular Medications: Refresh BID OU (-) Pain: (-) BROWN: (-) Diplopia: (-) Flashes: (-) Floaters: (-) Amaurosis Fugax/Tia's: (-) Eye Injury: (-) Eye Surgery: (-) TBI FOHx: (-) Glaucoma/ARMD/Blindness VITALS (most recent, as listed in the electronic record): B/P: 152/82 (11/30/2024 08:11) Pulse: 8 (11/30/2024 08:11) Temperature: 98.7 F [37.1 C] (11/30/2024 08:11) Weight: 243 lb [110.22 kg] (11/30/2024 08:11) Height: 72 in [182.9 cm] (02/09/2022 08:35) BMI: BMI: 33.0 PERTINENT LABS: HEMOGLOBIN A1C TREND Collection DT Spec HGBA1c 08/07/2022 08:53 BLOOD 6.0 H 02/09/2022 09:04 BLOOD 6.0 H (-) Smoker/Length of Time/PPD: Current Rx with last BCVA: OD: -0.25 sph 20/20+2 OS: +0.50 sph 20/20+2 Add:+2.00 DVA ( )sc ( x )cc - phoropter OD: 20/20-2 OS: 20/20-2 Pupils: PERRL (-)APD EOMs: SAFE OU, (-)Pain/Diplopia CVF (facial, peripheral): FTFC OU Subjective Refraction: deferred All the above performed by student, reviewed by attending Anterior segment: Performed by student, repeated by attending Lids: clear OU Conj: Pinguecula T OU 2+ papillae OU Cornea: reduced tear meniscus and TBUT OU (-)k spindle OU AC: D&Q OU Angles: 4x4 OU Iris: flat and clear OU Lens: Limited undilated view OU (-)PXF OU Tonometry: not required at this exam Performed by student, reviewed by attending Last IOP OD: 14 OS: 14 Dilation not required for this exam Fundus exam: Dilated: Non dilated:xxx Assessment/Plan: 1. Seasonal allergic conjunctivitis OU - Pt ed about findings - Ordering Patanol 1gtt BID OU - Recommended pt to use everyday when symptoms are present - Also recommended chilled ATs to relieve symptoms - Monitor 2. Dry eyes OU;symptomatic - Pt. ed. on todays findings - Continue Refresh - Ed. pt. to use BID-QID OU even on days when eyes are not feeling dry - Monitor 3. History of localized visual field defect detected on confrontational visual field test but not on HVF 30-2 - Confrontational visual field test today was unremarkable OU - Pt ed about findings - Monitor 4. Combined cataracts OU - Not evaluated today at this problem focus exam - Monitor at next CEE 5. Presbyopia OU - Pt ed that dry eyes can cause blurry vision - Monitor Return to Clinic in the fall as scheduled for CEE or earlier PRN /juanpablo/ XAVIER MIRANDA OPTOMETRY STUDENT Signed: 01/18/2025 13:38 /es/ Luis Thornton OD CHIEF OF OPTOMETRY Cosigned: 01/18/2025 15:06 XAVIER MIRANDA [facility]
--- OUTSIDE RECORDS SUMMARY | 2025-03-15 10:11 | XMS_ITS ---
Author Organization [facility] Freddy [place] Address [address] [place] [address] Care Team Providers Care Kettle Room Helper Name Role Phone Eliceo Garrison MD Primary Care Provider River Edmond [facility] [phone] Encounters Encounter Location Date Provider Diagnosis [facility] [address] [place] [address] 09/16/2023 River Delvalle Plan Of Treatment No Information Progress Notes * Andrea DAVIESDOB:1955 (69 yo M)Acc No.[id number]:09/16/2023 Progress Note Patient:?Andrea DAVIES Provider:?River Delvalle DPM :1955???Age:68 Y???Sex:Male Garret e:09/16/2023 [facility] Pcp:Eliceo Garrison MD Subjective: * Chief Complaints: * ??? * Medical History:? Objective: * Vitals:? Assessment: Plan: * Treatment: * Images: * The named appointment provid er may or may not be the originator of this progress note, and it is not deemed complete until electronically signed by the appointment provider. Sign off status: Pending * Provider:Abena Delvalle DPM Date:? 023 Generated for Printi ng/Faxing/eTransmitting on:?03/15/2025 10:11 AM EDT
--- OUTSIDE RECORDS SUMMARY | 2025-03-15 10:11 | XMS_ITS | Continuity of Care Document ---
Author Name [facility] Organization [facility] Care Team Providers Care Hospice Rn Name Role Phone [facility] Unavailable Unavailable Problems Combined list of problems from Department of Defense and Veterans Affairs facilities. It does not include entries that were removed or entered in error. Problem Status Onset Date Problem Type Date of Resolution Comments Source Anxiety (SCT 79778854) Active 09/13/20 Condition Feb 24, 2018 Entered By: CARSON MONTEMAYOR Comment: per Dr. Gallego notes [facility] HTN-Hypertension (SCT [id number]) Active 09/13/20 17 Condition Feb 24, 2018 Entered By: CARSON MONTEMAYOR Comment: per notes dr. Gallego [facility] Mixed Hyperlipidemia (SCT 725196302) Active 09/13/20 17 Condition Feb 24, 2018 Entered By: CARSON MONTEMAYOR Comment: per carli Gallego [facility] Unilateral Inguinal Hernia (SCT 07297117) Active 09/13/20 17 Condition Feb 24, 2018 Entered By: CARSON MONTEMAYOR Comment: per notes [facility] Chronic allergic conjunctivitis Active Condition Nov 30, 2024 Entered By: KIMBERLY MUELLER Comment: [facility] Chronic mucocutaneous herpes simplex infection Active Condition [facility] Erectile Dysfunction (SCT 375606790) Active Condition [facility] Ex-heavy tobacco smoker Active Condition Jun 13, 2020 Entered By: ALAN MOORE Comment: quit in his 20's [facility] History of surgery Active Condition Mar 07, 2018 Entered By: CARSON MONTEMAYOR Comment: colonoscopy/ rectal surgery - 2012 ( [facility]) - DR ABREUApr 2017 Entered By: CARSON MONTEMAYOR Comment: endoscopy ( dyspepsia)Oct 05, 2019 Entered By: CARSON MONTEMAYOR Comment: 08/2019 - right flank pain ( ERCP/ and then Cholectomy ) - [facility] ( laproscopyNov 2018 Entered By: CARSON MONTEMAYOR Comment: hx of prostectomy ( radiation post surgery ) - followed DR HUDSON- every 6 months [facility] Joint movement restrained Active Condition [facility] Pain in right foot Active Condition Dec 09, 2023 Entered By: KIMBERLY MUELLER Comment: vet limited/unable to use treadmill/ will see [facility] surgeon about R heel spurs [facility] Prediabetes Active Condition Dec 09, 2023 Entered By: KIMBERLY MUELLER Comment: stable A1c followed by community PCP/Dr Mckee-Cranbury [facility] Prostate Cancer (SCT [id number]) Active Condition Feb 12, 2018 Entered By: CARSON MONTEMAYOR Comment: per DR HUDSON NOTE 08/2017Nov 2018 Entered By: CARSON MONTEMAYOR Comment: pre pt report PSA - is starting to increase - and being evalualed for treatment [facility] Under care of multiple providers Active Condition Feb 12, 2018 Entered By: CARSON MONTEMAYOR Comment: urology - NON [facility] dr Cespedes 2017 Entered By: CARSON MONTEMAYOR Comment: NON [facility] PCP- DR MCKEEApr 2017 Entered By: CARSON MONTEMAYOR Comment: [facility] - DR MIRANDA ( every 6 month)Mar 07, 2018 Entered By: CARSON MONTEMAYOR Comment: right shoulder - new eng ortho [facility] Urgency - urination Active Condition [facility] Urine incontinence Active Condition Dec 09, 2023 Entered By: KIMBERLY MUELLER Comment: stable due to prostatectomy [facility] Diagnosis: ICD-10-CM L71.8 Other rosacea Active [facility] Diagnosis: ICD-10-CM C61 Malignant neoplasm of prostate [facility] Diagnosis: ICD-10-CM Z46.0 Encounter for fit/adjst of spectacles and contact lenses Active Diagnosis [facility] Diagnosis: ICD-10-CM H53.451 Other localized visual field defect, right eye Active Diagnosis [facility] Diagnosis: ICD-10-CM R73.03 Prediabetes Active Diagnosis [facility] Medications Combined list of outpatient medications from Department of Defense and Veterans Affairs facilities.Medications provided include 1) outpatient medications from the last 15 months, and 2) patient-reported medications. Medication Details Route Status Patient Instructions Prescription Expires Prescription Number Last Dispense Date Ordering Provider Order Date Order Qty Source AMLODIPINE BESYLATE 10MG TAB TAKE ONE TABLET BY MOUTH ONCE DAILY ORAL ACTIVE D'ALEMYRON RUSSELL 2023 [facility] ASPIRIN 81MG TAB,EC TAKE ONE TABLET BY MOUTH ONCE DAILY ORAL ACTIVE D'ALEMYRON RUSSELL 2023 [facility] ATENOLOL 50MG TAB TAKE ONE TABLET BY MOUTH DAILY ORAL ACTIVE PETROFF,S NNE 2017 [facility] ATORVASTATI N CA 20MG TAB TAKE ONE-HALF TABLET BY MOUTH ONCE DAILY ORAL ACTIVE PETROFF,S NNE 2018 [facility] CARBOXYMETH YLCELLULOSE NA 0.5% SOLN,OPH INSTILL 1 DROP INTO EACH EYE FOUR TIMES A DAY FOR DRY EYE OPHTHA LMIC ACTIVE 01/19/2026 [id number] Hermila THORNTON 2024 60 [facility] CARBOXYMETH YLCELLULOSE NA 0.5% SOLN,OPH INSTILL 1 DROP INTO EACH EYE FOUR TIMES A DAY FOR DRY EYE OPHTHA LMIC DISCONT INUED (EDIT) 07/11/2025 [id number] STEPHANIE PENA 2023 15 [facility] CETIRIZINE HCL 10MG TAB TAKE ONE TABLET BY MOUTH ONCE DAILY FOR ALLERGIE S ORAL ACTIVE 12/01/2025 [id number] MYRON LONDONO 2024 90 [facility] CHLORTHALID ONE 25MG TAB TAKE ONE TABLET BY MOUTH ONCE DAILY ORAL ACTIVE MYRON LONDONO 2023 [facility] FENOFIBRATE 54MG TAB TAKE ONE TABLET BY MOUTH ONCE DAILY ORAL ACTIVE Diego ABREU 2020 [facility] FLUTICASONE PROPIONATE 50MCG/SPRAY SOLN,NASAL, 16GM INSTILL 2 SPRAYS INTO EACH NOSTRIL ONCE DAILY FOR NASAL IRRITATI ON/INFLA MMATION NASAL ACTIVE 12/01/2025 [id number] 5 MYRON LONDOON 2024 3 [facility] KETOTIFEN 0.025% SOLN,OPH INSTILL 1 DROP INTO EACH EYE TWICE DAILY FOR ALLERGIC CONJUNCT IVITIS (IF YOU WEAR CONTACT LENSES, WAIT 10 MINUTES BEFORE INSERTIN G LENSES) OPHTHA LMIC DISCONT INUED BY PROVIDE R 12/01/2025 [id number] 5 MYRON LONDONO 2024 30 [facility] LOSARTAN 50MG TAB TAKE ONE TABLET BY MOUTH ORAL ACTIVE Yanira OMNTEMAYOR UANNE 2018 [facility] OLOPATADINE HCL 0.1% SOLN,OPH INSTILL 1 DROP INTO EACH EYE TWICE DAILY FOR ALLERGIC CONJUNCT IVITIS OPHTHA LMIC ACTIVE 01/19/2026 [id number] 5 Hermila THORNTON 2024 15 [facility] OMEPRAZOLE 20MG CAP,EC TAKE 2 CAPSULES BY MOUTH EVERY MORNING 30 MINUTES BEFORE BREAKFAS T ORAL ACTIVE RA CARMEN MOORE 2019 [facility] [place] [facility] Immunizations Combined list of available immunizations from the Department of Defense and Veterans Affairs facilities. Immunization Series Date Given Administered By Site Reaction Lot Number CVX Code Drug Sink Cutter Status Comments Source INFLUENZA, UNSPECIFIED FORMULATION 2023 88 complet ed Booster for Series, HISTORICA L INFORMATI ON - FROM OTHER PROVIDER, [facility] [place] [facility] INFLUENZA, UNSPECIFIED FORMULATION 2022 88 complet ed Completed Series, HISTORICA L INFORMATI ON - FROM PATIENT'S RECALL, [facility] COVID-19 (MODERNA), MRNA, LNP-S, BIVALENT BOOSTER, PF, 50 MCG/0.5 ML OR 25MCG/0.25 ML DOSE 1 2021 229 complet ed [facility] [place] [place] [facility] INFLUENZA VACCINE, QUADRIVALENT, ADJUVANTED 2021 205 complet ed [facility] [place] [facility] PNEUMOCOCCAL POLYSACCHARID E PPV23 2021 33 complet ed [facility] COVID-19 (MODERNA), MRNA, LNP-S, PF, 100 MCG/0.5 ML DOSE 2 2020 207 complet ed MOD; [id number]; 1 [facility] COVID-19 (MODERNA), MRNA, LNP-S, PF, 100 MCG/0.5 ML DOSE 1 2020 207 complet ed MOD; [id number]; 1 [facility] [place] [facility] INFLUENZA, UNSPECIFIED FORMULATION 2019 88 complet ed [facility] [place] [facility] INFLUENZA, SEASONAL, INJECTABLE [address] mckee office [facility] [place] [facility] PNEUMOCOCCAL CONJUGATE PCV 13 2018 133 complet ed [facility] TDAP 2017 115 complet ed Site: Left Deltoid [facility] [place] [facility] ZOSTER RECOMBINANT 2 2017 187 complet ed [facility] INFLUENZA, SEASONAL, INJECTABLE 2017 141 complet ed out side provider [facility] ZOSTER RECOMBINANT 1 2017 187 complet ed [facility] INFLUENZA, SEASONAL, INJECTABLE [address] Mckee [facility] Vital Signs Combined list of inpatient and outpatient Vital Signs from Department of Defense and Veterans Affairs, ranging from 12 months to all on record, depending upon the facility. Vital Sign Value Date Comments Source SYSTOLIC BLOOD PRESSURE 152 11/30/19 25 08:11:37 [facility] DIASTOLIC BLOOD PRESSURE 82 025 08:11:37 [facility] PULSE OXIMETRY 95 11/30/2024 08:11:37 [facility] WEIGHT 243 11/30/2024 08:11:37 [facility] BMI 33 kg/m2 11/30/2024 08:11:37 [facility] PAIN 0 11/30/2024 08:11:37 [facility] TEMPERATURE 98.7 11/30/2024 08:11:37 [facility] PULSE 8 11/30/2024 08:11:37 [facility] RESPIRATION 16 11/30/2024 08:11:37 [facility] Encounters Combined list of: 1) Encounters from Department of Veterans Affairs facilities going backup to the last 18 months, not all VA inpatient encounters are included; 2) Encounters from the Department of Defense facilities going backup to 280 months. Location Location Details Encounter Type Encounter Number Reason For Visit Attending Provider ADM Date DC Date Status Disposition Source [facility] OFFICE O/P EST MOD 30 MIN [id number] Diagnos is: ICD-10- CM R73.03 Prediab STEPHANIE Bellamy 12/09 [facility] [place] [id number] 1. Diagnos is: ICD-10- CM H53.451 Other localiz ed visual field defect, right eye STEPHANIE PENA 07/10 [facility] Out[facility] Encounter [id number] 1.07/10 [facility] FIT SPECTACLES MONOFOCAL [id number] 1. Diagnos is: ICD-10- CM Z46.0 Encount er for fit/adj st of spectac les and contact lenses STEPHANIE PENA 07/10 [facility] En[facility] [id number] [facility] En[facility] [id number] 09/22 [facility] EXTEND[place] VIS[place] FIELD XM [id number] Diagnos is: ICD-10- CM H53.451 Other localiz ed visual field defect, right eye KIMBERLY THORNTON 11/16 [facility] RPR&REFITG SPECT XCP APHAKIA [id number] Diagnos is: ICD-10- CM Z46.0 Encount er for fit/adj st of spectac les and contact lenses Jaguar QUEVEDO 11/16 [facility] Out[facility] [id number] 11/16 [facility] [place] Outpatient [facility]counter [id number] [facility] [place] [place] [facility] OFFICE O/P EST MOD 30 MIN [id number] Diagnos is: ICD-10- CM C61 Maligna nt neoplas m of prostat e D'ALESSWOLF STEPHANIE ELIAS 11/30 [facility] [place] [facility] OFFICE O/P EST MOD 30 MIN [id number] Diagnos is: ICD-10- CM L71.8 Other KIMBERLY Magallon 01/18 [facility] [place] [facility] Social History Combined list of available smoking, tobacco, and other social history from Department of Defense and Veterans Affairs facilities. Social History Type Response Date Comment Source Tobacco smoking status [facility] VA-TOBACCO USE FORMER CIGARETTES 11/30/2024 [facility] [place] [facility] History of tobacco use MT-TOBACCO NEVER USED OTHER TYPE 11/30/2024 [facility] [place] [facility] History of tobacco use VA-TOBACCO FORMER USER 12/09/2023 [facility] [place] [facility] History of tobacco use VA-TOBACCO NEVER USED 08/07/2022 [facility] [place] [facility] History of tobacco use VA-TOBACCO NEVER USED 06/23/2021 [facility] [place] [facility] History of tobacco use VA-TOBACCO FORMER USER 03/07/2020 [facility] [place] [facility] History of tobacco use VA-TOBACCO QUIT 15 YRS OR MORE 02/18/2019 [facility] [place] [facility] History of tobacco use QUIT TOBACCO USE > 7 YEARS AGO 03/07/2018 40 years ago [facility] [place] [facility] Plan of Care List of future care activities from Department of Veterans Affairs facilities. Additional future care activities may be listed in the Assessment and Plan section. Date/Time Care Activity Care Activity Detail Facili ty 07/22/2025 AMBULATORY - MEDICINE AMBULATORY - MEDICI [facility] Advance Directives List of completed, amended, or rescinded Advance Directives on record at Department of [facility] Affairs facilities. An actual copy of the Directive is not included. Date Advance Directive Provider Source 01/31/2021 ADVANCE DIRECTIVE NOAH LONG [facility]
--- OUTSIDE RECORDS SUMMARY | 2025-03-15 10:12 | XMS_ITS | Encounter Summary ---
Author Name [facility] [place] [facility] [place] Address [address] [place] [id number] Care Team Providers Care Renewable Energy Consultant Name Role Phone STEPHANIE MUELLER Primary Care [...] to Policy [facility] MEDICARE SUPPLEMETHODIST [facility] [address] Jun 18, 2018 [id number] ,[place] PATIENT MEDICARE (WNR) MEDICARE (M) PART A Jun 18, 2018 PART A [id number] [facility],YOSEF RGE PATIENT MEDICARE (WNR) MEDICARE (M) PART B Jun 18, 2018 PART B [id number] ,YOSEF RGE PATIENT Selected Encounter This section includes the information on record at [place] for the Encounter. Date/Time Encounter Type Encounter Description Reason Provider Source Jul 10, 2024 09:00 AM COMPRE OPH EXAM NEW PT 1/> OPTOMETRY ICD-10-CM H53.451 Other localized visual field defect, right eye JEANAILYN LELAND Pablo E Encounter Template Text not used by [place] Assessments - Encounter Diagnoses This section includes the primary and secondary diagnoses documented for the Encounter. Date/Time Primary/Secondary Diagnosis Diagnosis Name Provider Source Jul 13, 2024 09:39 AM PRIMARY Other localized visual field defect, right eye AILYN LUGOD Pablo [place] [facility] [place] [facility] Jul 13, 2024 09:39 AM SECONDARY Age-related nuclear cataract, bilateral OSHINSKIE,AILYN LELAND Shah [place] [facility] [place] [facility] Jul 13, 2024 09:39 AM SECONDARY Cortical age-related cataract, bilateral OSHINSKIE,AILYN LELAND Shah [place] [facility] [place] [facility] Jul 13, 2024 09:39 AM SECONDARY Dry eye syndrome of bilateral lacrimal glands IRVINFERNANDOAILYN LELAND Shah [place] [facility] [place] [facility] Jul 13, 2024 09:39 AM SECONDARY Hypermetropia, bilateral OSMARINANSKIE,AILYN LELAND Shah [place] [facility] [place] [facility] Jul 13, 2024 09:39 AM SECONDARY Presbyopia IRVINSHRAVANAILYN Cortez LELAND Shah [place] [facility] [place] [facility] Plan of Treatment: Future Appointments (+ 6 months) and Future Tests (+/- 45 days) The Plan of Treatment section includes future care activities for the patient from all [place] treatmentfacilities. This section includes future appointments and future orders which are active, pending or scheduled. Future Appointments This section includes appointments that were scheduled to occur 6 months from the date of the Encounter, up to a maximum of 20 appointments. The data comes from all [place] treatment facilities. Appointment Date/Time Appointment Type Appointme nt Facility Name Nov 16, 2024 09:00 AM AMBULATORY - MEDICINE [facility] Nov 16, 2024 09:40 AM AMBULATORY - MEDICINE [facility] [place] [facility] Nov 30, 2024 08:30 AM AMBULATORY - MEDICINE [facility] [place] [facility] Social History: Smoking Status (Most current) and Tobacco Use (All prior to encounter date) This section includes the most current, and the historical, smoking and tobacco- related health factors from the [place] facility where the Encounter took place. Current Smoking Status This section includes the most current smoking, or tobacco-related health factor, from the [place] facility where the Encounter took place. Date/Time Current Smoking Status Comment Randall sen Dec 09, 2023 10:00 AM VA-TOBACCO FORMER USER [place] [facility] Tobacco Use History This section includes a history of the smoking, or tobacco-related health factors, that were collected on or before the date of the Encounter. The data comes from the [place] facility where the Encounter took place. Date/Time Smoking Status/Tobacco Use Comment Valentin anders Dec 09, 2023 10:00 AM VA-TOBACCO QUIT 15 YRS OR MORE [place] [facility] [place] [facility] Aug 07, 2022 08:30 AM VA-TOBACCO NEVER USED [place] [facility] [place] [facility] Jun 23, 2021 09:30 AM VA-TOBACCO NEVER USED [place] [facility] [place] [facility] Mar 07, 2020 12:58 PM VA-TOBACCO FORMER USER [place] [facility] [place] [facility] Mar 07, 2020 12:58 PM VA-TOBACCO QUIT 15 YRS OR MORE [place] [facility] [place] [facility] Feb 18, 2019 09:35 AM VA-TOBACCO FORMER USER [place] [facility] [place] [facility] Feb 18, 2019 09:35 AM VA-TOBACCO QUIT 15 YRS OR MORE [place] [facility] [place] [facility] Mar 07, 2018 10:51 AM QUIT TOBACCO USE > 7 YEARS AGO 40 years ago [place] [facility] Advance Directives: All historical and current Section Date Range: From patient's date of to the date document was created. This section includes ALL of a patient's completed or amended [place] Advance and Rescinded Directives. The entries below indicate that a directive exists for the patient, but an actual copy is not included with this document. The data comes from all [place] facilities. Date Advance Directives Provider Source Jan 31, 2021 ADVANCE DIRECTIVE NOAH LONG [place] [facility] [place] [facility] Encounter Notes: All associated encounter notes This section contains the clinical notes associated to the Encounter. Date/Time Encounter Note(s) Provider Source Jul 10, 2024 08:35 AM OPTOMETRY NOTE: LOCAL TITLE: OPTOMETRY NOTE STANDARD TITLE: OPTOMETRY NOTE DATE OF NOTE: JUL 10, 2024@08:35 ENTRY DATE: JUL 10, 2024@08:35:47 AUTHOR: SHAVON REINA EXP COSIGNER: STEPHANIE LUGO URGENCY: STATUS: COMPLETED OPTOMETRY NOTE Has ADDENDA Active problems - Computerized Problem List is the source for the followin. Pain in right foot 2. Prediabetes 3. Urine incontinence 4. Ex-heavy tobacco smoker 5. Chronic mucocutaneous herpes simplex infection 6. History of surgery 7. Joint movement restrained 8. HTN-Hypertension ([facility] [id number]) 9. Mixed Hyperlipidemia ([facility] [id number]) 10. Anxiety ([facility] [id number]) 11. Unilateral Inguinal Hernia ([facility] [id number]) 12. Prostate Cancer ([facility] [id number]) 13. Erectile Dysfunction ([facility] [id number]) 14. Urgency - urination 15. Under care of multiple providers Active Outpatient Medications (including Supplies): Active Outpatient Medications Status 1) INCONT LINER DEPEND GUARDS USE 1 PAD TOPICALLY TWICE ACTIVE DAILY NEEDED Active Non-VA Medications Status 1) Non-VA AMLODIPINE BESYLATE 10MG TAB 10MG BY MOUTH ACTIVE ONCE DAILY 2) Non-VA ASPIRIN 81MG EC TAB 81MG BY MOUTH ONCE DAILY ACTIVE 3) Non-VA ATENOLOL 50MG TAB 50MG BY MOUTH DAILY ACTIVE 4) Non-VA ATORVASTATIN CALCIUM 20MG TAB 10MG BY MOUTH ACTIVE ONCE DAILY 5) Non-VA CHLORTHALIDONE 25MG TAB 25MG BY MOUTH ONCE ACTIVE DAILY 6) Non-VA FENOFIBRATE 54MG TAB 54MG BY MOUTH ONCE DAILY ACTIVE 7) Non-VA LOSARTAN 50MG TAB 50MG BY MOUTH ACTIVE 8) Non-VA OMEPRAZOLE 20MG EC CAP 40MG BY MOUTH EVERY ACTIVE MORNING 30 MINUTES BEFORE BREAKFAST 9 Total Medications Allergies: Patient has answered NKA All medications including those prescribed by outside VA's, community providers, and all OTC meds were reviewed and reconciled with patient to the best of their abilities. This 69 year old MALE is seen today for diabetic CEE - pt is new to [place] [facility] - [facility] ~10 yrs ago -Pt is prediabetic, controlled with diet and exercise. Last A1c 6.0%. Chief Complaint: -Pt reports that he does not currently wear glasses for distance and feels he sees fine most of the time, but has trouble with night driving and reports that glare is very bothersome. He is using OTC readers for near and they work well for reading. -Pt reports that he has long h/o ocular allergies with redness and irritation OU. He uses Visine and Lumify when his eyes bother him, not every day but it is often. Pt denies itch OU. OHx: -None per pt (-) Pain: (-) BROWN: (-) Diplopia: (-) Flashes: (+) Floaters: longstanding, no change (-) Amaurosis Fugax/Tia's: (-) Eye Injury: (-) Eye Surgery: (-) TBI FOHx: (-) Glaucoma/ARMD/Blindness (-) Smoker/Length of Time/PPD: VITALS (most recent, as listed in the electronic record): B/P: 152/72 (12/09/2023 09:48) Pulse: 56 (12/09/2023 09:48) Temperature: 97.8 F [36.6 C] (12/09/2023 09:48) Weight: 244 lb [110.68 kg] (12/09/2023 09:48) Height: 72 in [182.9 cm] (02/09/2022 08:35) BMI: BMI: 33.2 PERTINENT LABS: HEMOGLOBIN A1C TREND Collection DT Spec HGBA1c 08/07/2022 08:53 BLOOD 6.0 H 02/09/2022 09:04 BLOOD 6.0 H Current Rx with last BCVA: -None per pt DVA ( x )sc ( )cc OD: 20/20 OS: 20/20 Pupils: PERRL (-)APD, miotic and minimally reactive OU EOMs: SAFE OU, (-)Pain/Diplopia CVF (facial, peripheral): questionable constriction of temporally/inferior field OD , FTFC OS Autorefraction: OD: -0.25 -0.50 x048 20/20 OS: +0.50 -0.25 x093 20/20 Subjective Refraction: OD: -0.25 sph 20/20+2 OS: +0.50 sph 20/20+2 Add: +2.00 -Trial framed at distance and pt reports crisper vision with this rx. Trial framed at near, pt prefers +2.00 over +1.75 and +2.25. All the above performed by student, reviewed by attending Anterior segment: Performed by student, repeated by attending * Lids: MGD OU, inferior scleral show OU Conj: white and quiet OU, (-)papillae OU Cornea: inferior SPK OU AC: deep and quiet OU Angles: 1:1 N/T OU Iris: flat and clear OU, (-)NVI/TID OU Lens: 1-2+ NS OU, 1+ ACC OU, sutural cataract OD>OS, (-)PXF OU Tonometry: Performed by student, reviewed by attending * OD 14 mmHg OS 14 mmHg Time: 9:15am Fundus exam: Dilated: XXX - poor dilation limited view OU Dilating Drops: 1GTT 1 % Tropicamide OU & 1GTT 2.5% Phenylephrine OU (Pt. ed. on side effects, dilation warning given and verbal consent obtained) Patient advised not to drive if they feel they have any symptoms which could affect their ability to drive safely. Patient advised not to engage in any activities which could put themselves or others at risk if they feel they have any symptoms which could affect their ability to perform those activities safely. Performed by student, repeated by attending * Vit: clear OU C/D: 0.30 OD, 0.25 OS, pink and healthy with distinct margins OU (-)NVD OU Macula: flat and clear OU, (-)CSME OU PPole: hypopigmented area inferior to ONH OD, clear OS (-)NVE/DBH/CWS/ROULA/exudat es OU A/V: 2/3 Vessels: (+)mild venous tortuosity OU Periph: flat and intact, (-)holes, tears, detachments 360 OU, (-)NVE OU Assessment/Plan: 1. Visual field defect OD on confrontational visual gan (temporal/inferior temporal) but not noted on 30-2 VF and marginally constricted with finger confrontations. No fundus findings to correlate with this defect. - Pt ed on today's findings. VF 30-2 performed today are grossly clear OU with borderline reliability OD and poor reliability OS d/t poor pt fixation. - RTC in 3-4 months for repeat field testing. Consider a 120 screening VF or Esterman monocular VF. 2. Prediabetic without evidence of retinopathy or macular edema OU. Last A1c 6.0%. - Pt ed on today's findings and the possible ocular health and visual complications associated with diabetes as well as importance of attending follow up appts - Encouraged pt to monitor blood sugar and continue taking medications as prescribed by their PCP - Pt ed to call immediately if experiencing any sudden changes in vision - Monitor annually. 3. Dry eye OU - Pt ed on today's findings. Ed on use of warm compress 5 mins/day and AT's up to 4x per day. Ordered ATs today. - Monitor annually. 4. Combined Cataracts OU - corrected acuity is stable, pt reports trouble with glare at night - Pt ed on today's findings and importance of UV protection. - Rx'd distance glasses with yellow tint and anti-glare coating. - Monitor annually. 5. Hyperopia and Presbyopia OU - New spec rx written for FTW. Ordered 1 DVO with yellow tint and AR, 1 NVO per pt request - Monitor annually. Return to Clinic 3-4 months for f/u or sooner prn. Patient Education: Diabetes: Patient was educated regarding diabetes and related ocular complications including retinopathy and cataract formation as well as other related systemic complications. The importance of good blood sugar control, blood sugar testing as recommended by their PCP and the importance of timely follow up were all emphasized. /juanpablo/ Stephanie Lugo OD Fee Basis Horse Riding Coach Or Instructor Signed: 07/10/2024 11:18 for SHAVON REINA OPTOMETRY STUDENT /nemesio Lugo OD Fee Basis Horse Riding Coach Or Instructor Cosigned: 07/10/2024 11:18 07/10/2024 ADDENDUM STATUS: COMPLETED I reviewed all findings with the food consultant. I performed the slit lamp exam and dilated fundus exam. His finger confrontation defect OD is very mild and not found of formal VF today. Also no fundus lesions or optic nerve abnormalities to explain this defect. We will monitor with repeat VF in 3-4 months. Progress note reviewed and edited as needed. I established the plan of care and educated the patient about his conditions. Pt deferred receiving a list of current medications /juanpablo/ Stephanie Lugo OD Fee Basis Horse Riding Coach Or Instructor Signed: 07/10/2024 11:20 STEPHANIE LUGO [facility]
--- OUTSIDE RECORDS SUMMARY | 2025-03-15 10:12 | XMS_ITS ---
Author Organization [facility] Freddy cantrell [place] Address [address] [place] [address] Care Team Providers Care Autopsy Pathologist Name Role Phone Eliceo Garrison MD Primary Care Provider River Edmond Unavailable [phone] Allergies No Known Allergies REASON FOR VISIT Last PCP Visit: 04/06/23 Medications Medication SIG (Take, Route, Frequency, Duration) Notes Start Date End Date Status Prevacid Active Atorvastatin Calcium Active Atenolol 50 MG 1 tablet Orally Once a day for 30 day(s) Active Night Splint AFO - L1930 as directed 05/27/2023 Active Physical Therapy . . . 2-3x/week for 3-4 weeks Active Fenofibrate Active Feldene 20 MG 1 capsule with [...] Are you an other tobacco user? No Vital Signs Height 6 ft in 09/23/2023 Weight 245 lbs 09/23/2023 BMI 33.22 kg/m2 09/23/2023 Encounters Encounter Location Date Provider Diagnosis [facility] [place] [address] [place] [address] 09/23/2023 River Delvalle Pain in left foot M79.672 ; Pain in right foot M79.671 ; Calcaneal spur, right foot M77.31 ; Calcaneal spur, left foot M77.32 ; Other hammer toe(s) (acquired), right foot M20.41 ; Achilles tendinitis, left leg M76.62 and Achilles tendinitis, right leg M76.61 Assessments Encounter Date Diagnosis (ICD Code) Assessment Notes Treatment Notes Treatment Clinical Notes Section Notes 09/23/2023 Pain in left foot (ICD-10 - M79.672) 09/23/2023 Pain in right foot (ICD-10 - M79.671) 09/23/2023 Calcaneal spur, right foot (ICD-10 - M77.31) 09/23/2023 Calcaneal spur, left foot (ICD-10 - M77.32) 09/23/2023 Other hammer toe(s) (acquired), right foot (ICD-10 - M20.41) 09/23/2023 Achilles tendinitis, left leg (ICD-10 - M76.62) 09/23/2023 Achilles tendinitis, right leg (ICD-10 - M76.61) Plan Of Treatment Next Appt Details Follow Up: prn, Reason: Progress Notes * Andrea DAVIESDOB:1955 (68 yo M)Acc No.[id number]:09/23/2023 Progress Note Patient:?Andrea Davies Provider:Abena Delvalle DPM :1955???Age:68 Y???Sex:Male Garret e:09/23/2023 Address:[address] [place] [address] [id number] Pcp:Eliceo Garrison MD Subjective: * Chief Complaints: * ??? Last PCP Visit: 04/06/23 * HPI: ???Toe pain:?Nature:?sharp, throbbing, aching.?Location:?5th toe, Right foot.?Duration:?several months.?Onset/Cause:?gradual.?Course:?worse.?Aggrevated by:?any pressure, shoes, standing/walking.?Treatments:?change in shoes, bracing/splinting/padding.?Heel pain:?Nature:?tenderness, aching, dull , sharp pain.?Location:?Proximal plantar aspect of Heel, Back of heel, B/L, RIGHT greater than Left.?Duration:?several months.?Onset/Cause:?unknown, denies trauma.?Course:?worse.?Aggrevated:?walking first thing in the morning/after rest.?Treatments:?AFO-nightsplint, rest, open toe sandals , ice.?Severity/Quality:?States 9 out of 10.? * ROS:?General/Constitutional:?Nausea?denies.?Vomiting?denies.?Hunger Thirst?denies.?Loss appetite?denies.?Chills?denies.?Fatigue?denies.?Fever?denies.?Night Sweats?denies.?Unexplained weight loss?denies.?Unexplained weight gain?denies.?HEENTM:?Dentures?denies.?Dizziness?denies.?Glasses/contacts?denies.?Retinopathy?de nies.?Blurred/double vision?denies.?TMJ?denies.?Discharge/drainage?denies.?Implants?denies.?Sore throat?denies.?Dental implants?denies.?Hard of hearing ?denies.?Difficulty chewing/swallowing/speaking?denies.?Nose bleeds?denies.?Sore mouth?denies.?Respiratory:?On Oxygen?denies.?Pneumonia/pleurisy?denies.?Bronchitis?denies.?Emphysema?denies.?C oughing?denies.?Cough blood?denies.?Shortness of breath?denies.?Wheezing?denies.?Cardiovascular:?Pacemaker?denies.?MVP?denies.?WPW?denies.?CHF?denies.?Heart attack?denies.?Septal defect?denies.?Rapid beat?denies.?Chest pain ?denies.?Atrial Fib.?denies.?Murmur/Palpitations?denies.?Gastrointestinal:?Hemorrhoids?denies.?Stomach/Abdominal pain?denies.?Dark blood stool?denies.?Irritable bowel ?denies.?Constipation?denies.?Diarrhea?denies.?Hematology:?Swelling?denies.?Clots?denies.?Varicose Veins?denies.?Bruising?denies.?Bleeding problem?denies.?Genitourinary:?Blood urine?denies.?Frequent/Painfu/urination/bladder control?denies.?Kidney stones?denies.?Infection (UTI)?denies.?Nephropathy?denies.?sex trans dis (STD)?denies.?Prostate?denies.?Musculoskeletal:?Hammertoes?denies.?Bunions?denies.?Back Pain?denies.?Muscle Cramps/ Resting?denies.?Muscle cramps / walking?denies.?Generalized aches and pains?denies.?Weakness?denies.?Integ.:?Vizcaino?denies.?Scars?denies.?Corns/calluses?denies.?Ingrown nails?denies.?Painful nails?admits.?Open Sores?denies.?Rashes?denies.?Neurologic:?Difficulty sleeping?denies.?Brain disorder?denies.?Numbness?denies.?Balance trouble?denies.?Confusion?denies.?Fainting/blackouts?denies.?Tingling?denies.?Tr emors?denies.? * Medical History:? * Surgical History:?Denies Pas t Surgical History * Hospitalization/Major Diagno stic Procedure:?Denies Past Hospitalization * Family History:?Mother: dece ased.?Father: .? * Social History:?Tobacco Use:?Tobacco Use/Smoking?Are you a:?nonsmoker ?Additional Findings: Tobacco Non-User?Current non-smoker ?Tobacco use other than smoking?Are you an other tobacco user??No ???Drugs/Alcohol:?Drugs?Have you used drugs other than those for medical reasons in the past 12 months??No ?Alcohol Screen?Did you have a drink containing alcohol in the past year??Yes ?Points?0 ?Interpretation?Negative ???Miscellaneous:?Caffeine: yes, frequency:. ?no Exercise. ?Marital status: . ?Occupation: Retired. * Medications:?TakingFenofibra te Prevacid Atorvastatin Calcium Atenolol 50 MG Tablet 1 tablet Orally Once a dayNight Splint AFO - L1930 as directed Physical Therapy . . . . 2-3x/weekFeldene 20 MG Capsule 1 capsule with food Orally Once a dayMedication List reviewed and reconciled with the patientTaking Fenofibrate Taking Prevacid Taking Atorvastatin Calcium Taking Atenolol 50 MG Tablet 1 tablet Orally Once a dayTaking Night Splint AFO - L1930 as directed Taking Physical Therapy . . . . 2- 3x/weekTaking Feldene 20 MG Capsule 1 capsule with food Orally Once a dayMedication List reviewed and reconciled with the patient * Allergies:?N.K.D.A.yes[Aller gies Verified] Objective: * Vitals:?Ht:6 ft, Wt:245, BMI :33.22, Shoe size:10.5, Ht-cm: 182.88 cm, Wt-k.13 kg. * Examination: ???General Examination: ?GENERAL APPEARANCE:?pleasant, alert, well nourished, well developed, well hydrated, with good attention to hygene/body habitus, and in no acute distress.?ORIENTED:?person,place, and time.?Neurological: ?SENSORY:?Neurological exam reveals intact sensorium, pain sensation normal, vibration sensation intact, pinprick sensation is normal in the lower extremities, Pt denies, anesthesia, burning, paresthesia, tingling, B/L.?BABINSKI REFLEX:?absent.?Vascular: ?DP PULSES:? 11/21, B/L.?PT PULSES:? 11/21, B/L.?CAPILLARY FILL TIME:?3 secs. per digit, B/L.?SKIN TEMPERTURE GRADIENT OF THE LOWER EXTERMITIES:?warm to cool, proximal to distal, B/L.?HAIR GROWTH/TEXTURE/ELASTICITY/TURGOR:?normal, B/L.?PIGMENTATION:?normal, B/L.?EDEMA:? 11/21, B/L, Feet, Ankle(s), Leg(s).?TELANGECTASIA:?absent.?VARICOSITIES:?absent.?Dermatologic: ?SKIN FINDINGS:?r , Skin exam reveals Keratotic lesion(s) located at , T9?dipj and T8 pipj.?Orthopedic: ?MUSCLE STRENGTH:?5/5 all groups in a symmetrical fashion , B/L.?GAIT ABNORMALITY:?pronated, abducted, B/L.?DIGITAL DEFORMITIES:? Digital contracture t9 .?Heel Pain: ?INSPECTION:?Prominent posterior and posterior/superior heel present , Pain on Palpation to Posterior Superior Aspect Calcaneus , Pain on Palpation to Achilles tendon/bursa with inflammation and swelling present , RIGHT.? Assessment: * Assessment: 1.?Pain in right foot - M79. 671?2.?Pain in left foot - M79.672 (Primary)?3.?Calcaneal spur, right foot - M77.31?4.?Calcaneal spur, left foot - M77.32?5.?Other hammer toe(s) (acquired), right foot - M20.41?6.?Achilles tendinitis, left leg - M76.62?7.?Achilles tendinitis, right leg - M76.61? Plan: * Treatment: * Procedure Codes:? * Preventive Medicine:? ??Counseling:?Discussion:?-14: Office or other outpatient visit for the evaluation and management of an established patient, which required a medically appropriate history and/or examination and MODERATE level of DECISION MAKING for: 1 OR MORE CHRONIC PROBLEM(S) THATS WORSENING, 2 STABLE CHRONIC PROBLEMS, A NEWLY DIAGNOSED PROBLEM WITH UNCERTAIN PROGNOSIS, AN ACUTE COMPLICATED INJURY WITH MULTIPLE TREATMENT OPTIONS, OR AN ACUTE PROBLEM WITH ACCOMPANYING SYSTEMIC SYMPTOMS, THAT POSE(S) A MODERATE RISK OF MORBIDITY. THIS CONDITION MAY ALSO INCLUDE RX DRUG MANAGEMENT, OR A DECISON FOR MINOR SURGERY. The visit on the day of the encounter encompassed interpreting the data and educating the patient as to the nature of their condition, treatment options available according to their individual PMH, meds, allergies, and overall health/living conditions, as well as any potential risks or complications that may occur from a failure to adhere to, and participate in, the recommended course of therapy. The discussion included a complete verbal, and/or written explanation of the examination results, any x-rays taken, the proposed diagnosis, and outline of the treatment plan. A schedule for future care needs was also explained. The patient verbalized an understanding of the instructions at this time and agreed to be an active participant in their treatment. If the patient should think of any questions or concerns after the visit, I have encouraged the patient to call the office.?Consult:?The Pt. was counseled on the diagnosis, treatment options, and the need for a, Podiatry Surgical Consult at [facility] for right heel and achilles pain; pt is seeing obgyn nurse tomorrow to work on htn and heart issues; he will call when ready to schedule.? * Follow Up:?prn * Images: * Sign off status: Completed true * Provider:?River Delvalle DPM Date:? 023 Generated for Primitivo brenner/Bo/eTtinitting on:?03/15/2025 10:12 AM EDT History and Physical Notes * HPI (History of Present Illness) Category Sub-Category Detail Notes Category Not es Heel pain Duration: several months Nature: tenderness, aching, dull , sharp pain Severity/Quality: States 9 out of 10 Location: Proximal plantar asp ect of Heel, Back of heel, B/L, RIGHT greater than Left Onset/Cause: unknown, denies trabrandee dhaliwal Aggravated: walking first thing in the morning/after rest Course: worse Treatments: AFO-nightsplint, res t, open toe sandals , ice Toe pain Nature: sharp, throbbing, aching Location: 5th toe, Right foot Duration: several months Onset/Cause: gradual Course: worse Aggravated by: any pressure, shoes, standing/walking Treatments: change in shoes, bra cing/splinting/padding Examination Category Sub-Category Detail Notes Category Not es Neurological SENSORY: Neurological exa m reveals intact sensorium, pain sensation normal, vibration sensation intact, pinprick sensation is normal in the lower extremities, Pt denies, anesthesia, burning, paresthesia, tingling, B/L BABINSKI REFLEX: absent Dermatologic SKIN FINDINGS: r , Skin exam re veals Keratotic lesion(s) located at , T9 dipj and T8 pipj Orthopedic GAIT ABNORMALITY: pronated, abducted, B/L DIGITAL DEFORMITIES: Digital contracture t9 MUSCLE STRENGTH: 5/5 all groups in a symmetrical fashion , B/L General Examination GENERAL APPEARANCE: pleasant , alert, well nourished, well developed, well hydrated, with good attention to hygene/body habitus, and in no acute distress ORIENTED: person,place, and ti me Vascular DP PULSES (B): 1/4, B/L PT PULSES (B): 1/4, B/L CAPILLARY FILL TIME: 3 secs. 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
--- OUTSIDE RECORDS SUMMARY | 2025-03-15 10:12 | XMS_ITS | Encounter Summary ---
Author Name [facility] [facility] [place] [facility] [place] Address [address] [place] [address] Care Team Providers Care Distribution System Operator Name Role Phone STEPHANIE MUELLER Primary Care [...] to Policy [facility] Jun 18, 2018 [id number] YOSEF DAVIES RGE PATIENT MEDICARE (WNR) MEDICARE (M) PART A Jun 18, 2018 PART A [id number] YOSEF RGE PATIENT MEDICARE (WNR) MEDICARE (M) PART B Jun 18, 2018 PART B [id number] YOSEF DAVIES RGE PATIENT Selected Encounter This section includes the information on record at [place] for the Encounter. Date/Time Encounter Type Encounter Description Reason Provider Source Nov 30, 2024 08:30 AM OFFICE O/P EST MOD 30 MIN PRIMARY CARE/MEDICINE ICD-10-CM C61 Malignant neoplasm of prostate Hermila MUELLERE Encounter Template Text not used by [place] Assessments - Encounter Diagnoses This section includes the primary and secondary diagnoses documented for the Encounter. Date/Time Primary/Secondary Diagnosis Diagnosis Name Provider Source Dec 16, 2024 12:53 PM PRIMARY Malignant neoplasm of prostate TanjaYuryYANISTEPHANIE [facility] [place] [facility] Dec 16, 2024 12:53 PM SECONDARY Other chronic allergic conjunctivitis TanjaYuryYANI STEPHANIE [facility] Dec 16, 2024 12:53 PM SECONDARY Prediabetes AMAYAYANISTEPHANIE [facility] Plan of Treatment: Future Appointments (+ 6 months) and Future Tests (+/- 45 days) The Plan of Treatment section includes future care activities for the patient [facility] [place] [facility]. This section includes future appointments and future orders which are active, pending or scheduled. Future Appointments This section includes appointments that were scheduled to occur 6 months from the date of the Encounter, up to a maximum of 20 appointments. The data comes from all [place] treatment facilities. Appointment Date/Time Appointment Type Appointme nt Facility Name Jan 18, 2025 08:00 AM AMBULATORY - MEDICINE [facility] Active, Pending, and Scheduled Orders This section includes a listing of several types of active, pending, and scheduled orders, including clinic medications orders, diagnostic test orders, procedure orders and consult orders; where the start date of the order is 45 days before the date of the Encounter or 45 days after the date of theEncounter. The data comes from all [place] treatment facilities. Test Date/Time Test Type Test Details Facility Name Dec 02, 2024 12:00 AM Laboratory - Chemi stry Order OCCULT BLOOD FIT X1 SCREEN (MFP ONLY) STOOL FECES SP [facility] Vital Signs: All taken on the encounter date This section contains inpatient and outpatient Vital Signs collected on the date of the Encounter. Date/Time Temperature Pulse Blood Pressure Respiratory Rate SP02 Pain Height Weight Body Mass Index Source Nov 30, 2024 08:11 AM 98.7 8 152/82 16 95 0 243 33 [facility] Social History: Smoking Status (Most current) and Tobacco Use (All prior to encounter date) This section includes the most current, and the historical, smoking and tobacco- related health factors from the [place] facility where the Encounter took place. Current Smoking Status This section includes the most current smoking, or tobacco-related health factor, from the [place] facility where the Encounter took place. Date/Time Current Smoking Status Comment Randall sen Nov 30, 2024 08:30 AM VA-TOBACCO USE FOR PATRIC CIGARETTES [place] [facility] Tobacco Use History This section includes a history of the smoking, or tobacco-related health factors, that were collected on or before the date of the Encounter. The data comes from the [place] facility where the Encounter took place. Date/Time Smoking Status/Tobacco Use Comment Valentin anders Nov 30, 2024 08:30 AM VA-TOBACCO USE FOR PATRIC CIGARETTES [place] [facility] [place] [facility] Dec 09, 2023 10:00 AM VA-TOBACCO FORMER USER [facility] [place] [facility] Dec 09, 2023 10:00 AM VA-TOBACCO QUIT 15 YRS OR MORE [place] [facility] [place] [facility] Aug 07, 2022 08:30 AM VA-TOBACCO NEVER USED [facility] [place] [facility] Jun 23, 2021 09:30 AM VA-TOBACCO NEVER USED [place] [facility] [place] [facility] Mar 07, 2020 12:58 PM VA-TOBACCO FORMER USER [facility] [place] [facility] Mar 07, 2020 12:58 PM VA-TOBACCO QUIT 15 YRS OR MORE [place] [facility] [place] [facility] Feb 18, 2019 09:35 AM VA-TOBACCO FORMER USER [facility] [place] [facility] Feb 18, 2019 09:35 AM VA-TOBACCO QUIT 15 YRS OR MORE [place] [facility] [place] [facility] Mar 07, 2018 10:51 AM QUIT TOBACCO USE > 7 YEARS AGO 40 years ago [place] [facility] [place] [facility] Advance Directives: All historical and current Section Date Range: From patient's date of to the date document was created. This section includes ALL of a patient's completed or amended VA Advance and Rescinded Directives. The entries below indicate that a directive exists for the patient, but an actual copy is not included with this document. The data comes from all [place] facilities. Date Advance Directives Provider Source Jan 31, 2021 ADVANCE DIRECTIVE NOAH LONG [place] [facility] [place] [facility] Encounter Notes: All associated encounter notes This section contains the clinical notes associated to the Encounter. Date/Time Encounter Note(s) Provider Source Nov 30, 2024 08:12 AM PREVENTIVE MEDICINE NURSING NOTE: LOCAL TITLE: CLINICAL REMINDERS/NURSING STANDARD TITLE: PREVENTIVE MEDICINE NURSING NOTE DATE OF NOTE: NOV 30, 2024@08:12 ENTRY DATE: NOV 30, 2024@08:12:34 AUTHOR: ESTEFANI ROSALES EXP COSIGNER: URGENCY: STATUS: COMPLETED Suicide Screen: C-SSRS Screening [place] Suicide Severity Rating Scale (C-SSRS) screener 1. Over the past month, have you wished you were or wished you could go to sleep and not wake up? No 2. Over the past month, have you had any actual thoughts of killing yourself? No 3. Over the past month, have you been thinking about how you might do this? Response not required due to responses to other questions. 4. Over the past month, have you had these thoughts and had some intention of acting on them? Response not required due to responses to other questions. 5. Over the past month, have you started to work out or worked out the details of how to kill yourself? Response not required due to responses to other questions. 6. If yes, at any time in the past month did you intend to carry out this plan? Response not required due to responses to other questions. 7. In your lifetime, have you ever done anything, started to do anything, or prepared to do anything to end your life (for example, collected pills, obtained a gun, gave away valuables, went to the roof but didn't jump)? No 8. If YES, was this within the past 3 months? Response not required due to responses to other questions. Depression Screening: Perform PHQ-2 A PHQ-2 screen was performed. The score was 0 which is a negative screen for depression. Over the past two weeks, how often have you been bothered by the following problems? 1. Little interest or pleasure in doing things Not at all 2. Feeling down, depressed, or hopeless Not at all Avg Risk Colorectal Cancer Screen: AVERAGE RISK colorectal cancer screening is due based on information available to this clinical reminder Colorectal cancer screening already scheduled or in process of being scheduled. Comment: scheduled for January 2025 [facility] PTSD Screening: PC-PTSD-5 A PTSD screening test (PC-PTSD-5) was negative (score=0). IN THE PAST MONTH, have you ever had any experience that was so frightening, horrible or traumatic. For example: A serious accident or fire a physical or sexual assault or abuse An earthquake or flood A war Seeing someone be killed or seriously injured Having a loved one through homicide or suicide 1. Have you ever experienced this kind of event? NO 2. Had nightmares about the event(s) or thought about the event(s) when you did not want to? Response not required due to responses to other questions. 3. Tried hard not to think about the event(s) or went out of your way to avoid situations that reminded you of the event(s)? Response not required due to responses to other questions. 4. Been constantly on guard, watchful, or easily startled? Response not required due to responses to other questions. 5. Comins numb or detached from people, activities, or your surroundings? Response not required due to responses to other questions. 6. Comins guilty or unable to stop blaming yourself or others for the event(s) or any problems the event(s) may have caused? Response not required due to responses to other questions. Tobacco Use Screening: The patient is a former cigarette smoker. Quit smoking GREATER THAN OR EQUAL to 15 years. The patient has never used other types of tobacco. Alcohol Use Screen (AUDIT-C): Alcohol Screen: SCREEN FOR ALCOHOL (AUDIT-C) An alcohol screening test (AUDIT-C) was negative (score=2). 1. How often did you have a drink containing alcohol in the past year? Consider a drink to be a 12 ounce can or bottle of regular beer, 8 ounces of malt liquor, a 5 ounce glass of table wine, or a 1.5 ounce shot of liquor (like scotch, gin, or vodka). Two to four times a month 2. How many drinks containing alcohol did you have on a typical day when you were drinking in the past year? One or two drinks 3. How often did you have six or more drinks on one occasion in the past year? Never Influenza Immunization: The patient has received the seasonal influenza vaccine for the current season at another location. Documented: INFLUENZA, UNSPECIFIED FORMULATION Historical Date Administered: Aug 30, 2024 Series: Booster Outside Location: Outside Healthcare Provider Information Source: FROM OTHER PROVIDER /[email or web address]/ ESTEFANI ROSALES LPN Signed: 11/30/2024 08:16 SHANTA ROSALES [place] [facility] [place] [facility] Nov 30, 2024 07:59 AM PHYSICIAN NOTE: LOCAL TITLE: MD NOTE STANDARD TITLE: PHYSICIAN NOTE DATE OF NOTE: NOV 30, 2024@07:59 ENTRY DATE: NOV 30, 2024@07:59:14 AUTHOR: COLLINS MUELLER EXP COSIGNER: URGENCY: STATUS: COMPLETED HISTORY OF PRESENT ILLNESS: DANAY DAVIES, is a 69 yo WHITE MALE [place] who presents [place] the [place] [facility] CC. prostate cancer and other problems HPI. this vet presents to PCP clinic to discuss his concerns: 1. prostate cancer- vet has long hx of prostate cancer, s/p surgery in past and [facility] he is on hormone blocking tx w/ Lupron and has PSA followed to monitor tx, he does have some hot flash sx but otherwise rita this tx 2. vet describes itching in eyes with some incr lacrimation, he has mild other allergic rhinitis sx w/ coryza but no fevers, no sneezing, uses visine and eye moisturizing drops 3. hx of prediabetes with obesity, unchanged, no polyuria. SH nonsmoker Active problems - Computerized Problem List is the source for the followin. Pain in right foot 2. Prediabetes 3. Urine incontinence 4. Ex-heavy tobacco smoker 5. Chronic mucocutaneous herpes simplex infection 6. History of surgery 7. Joint movement restrained 8. HTN-Hypertension ([facility] [id number]) 9. Mixed Hyperlipidemia ([facility] [id number]) 10. Anxiety ([facility] [id number]) 11. Unilateral Inguinal Hernia ([facility] [id number]) 12. Prostate Cancer ([facility] [id number]) 13. Erectile Dysfunction ([facility] [id number]) 14. Urgency - urination 15. Under care of multiple providers HISTORY: PERIOD OF SERVICE - [employer] FROM Jun TO Jun COMBAT SERVICE INDICATED: No SERVICE CONNECTED % - 10 VITAL SIGNS: Temperature 97.8 F [36.6 C] (12/09/2023 09:48) Blood Pressure 152/72 (12/09/2023 09:48) Pulse 56 (12/09/2023 09:48) Respiration 16 (12/09/2023 09:48) Pain 0 (12/09/2023 09:48) BMI BMI: 33.2 Weight 244 lb [110.68 kg] (12/09/2023 09:48) Pulse Oximetry 97% (12/09/2023 09:48) Review of Systems: CONSTITUTIONAL: No fever, no loss of appetite ENT: No sore throat, no cough CARDIOVASCULAR: No chest pain, no palpitations RESPIRATORY: No SOB, no wheezing GASTROINTESTINAL: No abd pain, no N/V/D, no change in stool EXAMINATION General: Well-appearing gentleman in no obvious distress. Mental Status: Alert and oriented x 3 Head: Normocephalic. Eyes: Anicteric sclerae. Conjunctivae noninjected. Neuro: Normal speech & gait DATA REVIEW >> MEDICATIONS Reviewed Today (VA & Non VA) ALLERGIES: Patient has answered NKA Active Outpatient Medications (including Supplies): Issue Date Status Last Fill Active Outpatient Medications Refills Expiration 1) CARBOXYMETHYLCELLULOSE NA 0.5% OPH SOLN Qty: ACTIVE Issue: 07/10/24 15 for 30 days Sig: INSTILL 1 DROP INTO EACH Refills: 11 Last : 07/10/24 EYE FOUR TIMES A DAY Expr : 07/11/25 Indication: FOR DRY EYE 2) INCONT LINER DEPEND GUARDS Qty: 104 for 60 ACTIVE Issue: 12/09/23 days Sig: USE 1 PAD TOPICALLY TWICE DAILY Refills: 3 Last : 10/01/24 NEEDED Expr : 12/09/24 Indication: INCONTINENCE Start Date Active Non-VA Medications Status Stop Date 1) Non-VA AMLODIPINE BESYLATE 10MG TAB Sig: ACTIVE 10MG BY MOUTH ONCE DAILY 2) Non-VA ASPIRIN 81MG EC TAB SiMG BY ACTIVE MOUTH ONCE DAILY Indication: FOR MYOCARDIAL REINFARCTION PREVENTION 3) Non-VA ATENOLOL 50MG TAB SiMG BY MOUTH ACTIVE DAILY 4) Non-VA ATORVASTATIN CALCIUM 20MG TAB Sig: ACTIVE 10MG BY MOUTH ONCE DAILY 5) Non-VA CHLORTHALIDONE 25MG TAB SiMG BY ACTIVE MOUTH ONCE DAILY 6) Non-VA FENOFIBRATE 54MG TAB SiMG BY ACTIVE MOUTH ONCE DAILY 7) Non-VA LOSARTAN 50MG TAB SiMG BY MOUTH ACTIVE 8) Non-VA OMEPRAZOLE 20MG EC CAP SiMG BY ACTIVE MOUTH EVERY MORNING 30 MINUTES BEFORE BREAKFAST 10 Total Medications >> LABS REVIEWED TODAY: CHEM 7 TREND LAB CUMULATIVE SELECTED Collection DT Spec GLUCOSE BUN CREATIN Sodium K+/Pot CL CO2 08/07/2022 08:53 SERUM 127 H 21 0.99 142 4.6 106 27 02/09/2022 09:04 SERUM 120 H 22 1.09 139 4.3 107 25 08/13/2018 07:50 SERUM 128 H 18 1.10 142 4.7 107 30 LAB CUMULATIVE SELECTED 2 No selection items chosen for this component. CHEM 7 Results Collection DT Spec Sodium K+/Pot CL CO2 GLUCOSE BUN 08/07/2022 08:53 SERUM 142 4.6 106 27 127 H 21 02/09/2022 09:04 SERUM 139 4.3 107 25 120 H 22 08/13/2018 07:50 SERUM 142 4.7 107 30 128 H 18 CBC TREND Collection DT Spec WBC RBC HGB HCT MCV MCH PLT 08/07/2022 08:53 BLOOD 7.85 4.62 13.8 40.9 88.5 29.9 239 02/09/2022 09:04 BLOOD 7.09 4.99 14.5 44.0 88.2 29.1 267 08/13/2018 07:50 BLOOD 7.73 4.88 14.8 44.0 90.2 30.3 253 HEMOGLOBIN A1C TREND Collection DT Spec HGBA1c 08/07/2022 08:53 BLOOD 6.0 H 02/09/2022 09:04 BLOOD 6.0 H LIPID PANEL TREND Collection DT Spec CHOL HDL CHO/HDL LDL-c TRIG 08/07/2022 08:53 SERUM 204 H 47 4.3 100 287 H 02/09/2022 09:04 SERUM 165 38 L 4.3 99 140 08/13/2018 07:50 SERUM 164 32 L 5.1 98 169 H UREA NITROGEN - NONE FOUND CREATININE-EGFR - NONE FOUND LIVER PANEL TREND Collection DT Spec AST ALT T BILI ALK RANDAL T. PROT ALBUMIN 08/07/2022 08:53 SERUM 24 31 0.6 86 6.3 3.9 02/09/2022 09:04 SERUM 21 27 0.6 81 6.4 4.0 08/13/2018 07:50 SERUM 26 53 0.6 100 6.1 3.9 PSA TREND No data available Collection DT Spec TSH 08/07/2022 08:53 SERUM 1.71 ANEMIA PANEL TREND Collection DT Spec HCT 08/07/2022 08:53 BLOOD 40.9 02/09/2022 09:04 BLOOD 44.0 08/13/2018 07:50 BLOOD 44.0 PT INR TREND No data available >> HEALTH MAINTENANCE PREVENTIVE MEDICINE GOALS Advance Directive Screen MH AD Dec 09 Suicide Screen Dec 09 Toxic Exposure Screening DUE NOW Avg Risk Colorectal Cancer Screen Sep 18 Depression Screening Dec 09 HIV Screening DUE NOW Lipid Screening May 02 PTSD Screening Mar 07 Tobacco Use Screening Dec 09 Influenza Immunization DUE NOW Medication Reconciliation DUE NOW Alcohol Use Screen (AUDIT-C) DUE NOW COVID-19 Immunization DUE NOW HTN Assess for Elevated BP>=140/90 DUE NOW Sexual Orientation Dec 09 RHS Screen DUE NOW (Optional) Whole Health Documentation DUE NOW ASSESSMENT/PLAN: 1. prostate cancer 2. allergic conjunctivitis 3. prediabetes Plan 1. continue Lupron per [facility] urology 2. trial of ketotifen, cetirizine, and flonase for next month 3. refer to [facility] 4. consider checking IgE if vet continues to have symptoms/ consider senior infrastructure engineer referral and singulair 5. counselled re wt loss, inc exercise/portion control- see HPI 6. f/u w/ [facility] PCP in one yr and PRN LAB ORDERS FOR NEXT APPT. spent in patient care and education No barriers; Patient understands and agrees to current treatment plan. If pt has any questions, concerns, or changes in current health status he/she will call or come in to the [facility]. Medication Reconciliation: Outpatient: Has the patient been taking medications as documented in the EMLR? YES: The patient has been taking medications as documented in the EMLR. Essential Medication List for Review used to complete this medication reconciliation. INCLUDED IN THIS LIST: Alphabetical list of active outpatient prescriptions dispensed from this [place] (local) and dispensed from another [place] or [facility] facility (remote) as well as inpatient orders (local, pending and active), local clinic medications, locally documented non-VA medications, and local prescriptions that have or been discontinued in the past 90 days. - All changes in medications, including all non-VA/Herbal/OTC medications were entered into CPRS. - If there were any medications the patient should no longer take, they were discontinued. - The patient/caregiver was instructed to update this list, discard old lists, and take this list to the next appointment, whether with a VA or non-VA provider. /[email or web address]/ STEPHANIE MUELLER MD PHYSICIAN Signed: 11/30/2024 12:28 VICKY MUELLER [facility]
--- OUTSIDE RECORDS SUMMARY | 2025-03-15 10:12 | XMS_ITS | Encounter Summary ---
Author Name [facility] [place] Organization [facility] [place] Address [address] [place] [id number] Care Team Providers Care Knockout Worker Name Role Phone STEPHANIE MUELLER Primary Care [...] AGENC Y SUPP PL Jun 18, 2018 [id number] YOSEF RGE PATIENT MEDICARE (WNR) MEDICARE (M) PART A Jun 18, 2018 PART A [id number] [facility],YOSEF RGE PATIENT MEDICARE (WNR) MEDICARE (M) PART B Jun 18, 2018 PART B [id number] ,YOSEF RGE PATIENT Selected Encounter This section includes the information on record at [place] for the Encounter. Date/Time Encounter Type Encounter Description Reason Pro vider Source Jul 10, 2024 10:00 AM Outpatient Encounter OPTOMETRY IHE Encounter Template Text not used by VA Plan of Treatment: Future Appointments (+ 6 months) and Future Tests (+/- 45 days) The Plan of Treatment section includes future care activities for the patient from all [place] [facility]. This section includes future appointments and future orders which are active, pending or scheduled. Future Appointments This section includes appointments that were scheduled to occur 6 months from the date of the Encounter, up to a maximum of 20 appointments. The data comes from all [place] treatment facilities. Appointment Date/Time Appointment Type Appointme nt Facility Name Nov 16, 2024 09:00 AM AM[place]ULATORY [place]ICINE [place] [facility] [place] [facility] Nov 16, 2024 09:40 AM [place]ULATORY [place] [facility] [place] [facility] Nov 30, 2024 08:30 AM AM[place]ULATORY [place] [facility] [place] [facility] Social History: Smoking Status (Most current) and Tobacco Use (All prior to encounter date) This section includes the most current, and the historical, smoking and tobacco- related health factors from the [place] facility where the Encounter took place. Current Smoking Status This section includes the most current smoking, or tobacco-related health factor, from the [place] facility where the Encounter took place. Date/Time Current Smoking Status Comment Randall ity Dec 09, 2023 10:00 AM VA-TOBACCO FORMER USER [place] [facility] [place] [facility] Tobacco Use History This section includes a history of the smoking, or tobacco-related health factors, that were collected on or before the date of the Encounter. The data comes from the [place] facility where the Encounter took place. Date/Time Smoking Status/Tobacco Use Comment F acility Dec 09, 2023 10:00 AM VA-TOBACCO QUIT 15 YRS OR MORE [facility] [place] [facility] Aug 07, 2022 08:30 AM VA-TOBACCO NEVER USED [facility] [place] [facility] Jun 23, 2021 09:30 AM VA-TOBACCO NEVER USED [facility] [place] [facility] Mar 07, 2020 12:58 PM VA-TOBACCO FORMER USER [facility] [place] [facility] Mar 07, 2020 12:58 PM VA-TOBACCO QUIT 15 YRS OR MORE [facility] [place] [facility] Feb 18, 2019 09:35 AM VA-TOBACCO FORMER USER [facility] [place] [facility] Feb 18, 2019 09:35 AM VA-TOBACCO QUIT 15 YRS OR MORE [facility] Mar 07, 2018 10:51 AM QUIT TOBACCO USE > 7 YEARS AGO 40 years ago [facility] Advance Directives: All historical and current Section Date Range: From patient's date of to the date document was created. This section includes ALL of a patient's completed or amended VA Advance and Rescinded Directives. The entries below indicate that a directive exists for the patient, but an actual copy is not included with this document. The data comes from all [place] facilities. Date Advance Directives Provider Source Jan 31, 2021 ADVANCE DIRECTIVE [facility] Encounter Notes: All associated encounter notes This section contains the clinical notes associated to the Encounter. Date/Time Encounter Note(s) Provider Source Jul 10, 2024 10:37 AM OPTOMETRY CONSULT: [facility] TITLE: CONSULT REPORT/OPTOMETRY VISUAL FIELD STANDARD TITLE: OPTOMETRY CONSULT DATE OF NOTE: JUL 10, 2024@10:37 ENTRY DATE: JUL 10, 2024@10:37:59 AUTHOR: SHAVON REINA EXP COSIGNER: STEPHANIE LUGO URGENCY: STATUS: COMPLETED CONSULT REPORT/OPTOMETRY VISUAL FIELD Has ADDENDA Visual field Report: HVF 24-2 reviewed for visual field defect OD Interpretation: OD: borderline reliability with 1/17 fixation losses, 2% false positives. GHT WNL. Clear field, no defects consistent with neurologic abnormalities. Poor fixation noted with fixation tracker. OS: poor reliability with 7/17 fixation losses, 7% false positives. GHT WNL. Clear field, no defects consistent with neurologic abnormalities. Poor fixation noted with fixation tracker. A/P: Visual field defect OD on confrontational visual gan (temporal/inferior temporal) but questionable reliability - Pt ed on today's findings. VF 30-2 performed today are grossly clear OU with borderline reliability OD and poor reliability OS d/t poor pt fixation. - RTC in 3-4 months for repeat field testing. /juanpablo/ Stephanie Lugo OD [employer] Supervisor Signed: 07/10/2024 11:21 for SHAVON REINA OPTOMETRY STUDENT /juanpablo/ Stephanie Lugo OD [employer] Supervisor Cosigned: 07/10/2024 11:21 07/10/2024 ADDENDUM STATUS: COMPLETED I reviewed the VF. Both eyes are somewhat unreliable so we will repeat VF in 3- 4 months. /juanpablo/ Stephanie Lugo OD [employer] Supervisor Signed: 07/10/2024 11:22 STEPHANIE LUGO [place] [facility]
--- OUTSIDE RECORDS SUMMARY | 2025-03-15 10:12 | XMS_ITS ---
Author Organization [facility] Suellendivine [place] Address [address] [facility] [place] [address] Care Team Providers Care Asphalt Patcher Name Role Phone Eliceo Garrison MD Primary Care Provider River Edmond [phone] REASON FOR VISIT medical records request Encounters Encounter Location Date Provider Diagnosis [facility] [address] [place] [address] 12/05/2023 River Delvalle Plan Of Treatment No Information Progress Notes * AndreaDOB:1955 (68 yo M)Acc No.[id number]:12/05/2023 Patient:?Andrea Wasserman :1955???Age:68 Y???Sex:Male Address:[address] [place], [address] * true * Date:? Generated for Primitivo brenner/Bo/eTransmitting on:?03/15/2025 10:11 AM EDT
== END 2025-03-15 09:53 | disposition home or self-care (01) ==
LOC: HO.HMCHD 09:17
PROVIDERS: PCP Internal Medicine; Visit Provider Internal Medicine
DX: I10 Essential (primary) hypertension (principal); E78.5 Hyperlipidemia, unspecified; Z00.00 Encounter for general adult medical examination without abnormal findings

== ENCOUNTER → 2025-03-15 09:17 | Outpatient (BNVA) | payer MEDICARE, OTHER, SELFPAY | PROVIDERS: PCP Internal Medicine; Visit Provider Internal Medicine | DX: I10 Essential (primary) hypertension (principal); E78.5 Hyperlipidemia, unspecified | CPT/HCPCS: 99202 ==

== ENCOUNTER 2025-03-19 07:37 | Outpatient (REF) | payer MEDICARE, OTHER, SELFPAY ==
--- OUTSIDE RECORDS SUMMARY | 2025-03-19 07:39 | XMS_ITS | Patient Health Record ---
Author Organization [facility] Freddy tamia [place] Address [address] [facility] [place] [address] Care Team Providers Care Police Matron Name Role Phone Eliceo Garrison MD Primary Care Provider River Edmond Unavailable [phone] Allergies No Known Allergies Reason For Referral [...] Problem Status W/U Status Risk Notes Problem Other hammer toe(s) (acquired), right foot (M20.41) Active confirmed Plan Of Treatment Pending Test Test Name Order Date X ray : Foot, left 3V 05/27/2023 X ray : Foot, right 3V 05/27/2023 Insurance Providers Payer Name Payer Address Payer Phone Subscriber Number Group Number Insured Name Patient Relationship to Insured Coverage Start Date Coverage End Date Medicare National [employer] [address] [place] [address] [id number] FieldAndrea Self - patient is the insured [facility] [address] [facility] [place] [address] [id number] Andrea Wasserman Self - patient is the insured Medical (General) History Medical History History ICD Code Anxiety Measles Chicken pox Surgical History Surgery Date(Month/Year)
--- OUTSIDE RECORDS SUMMARY | 2025-03-19 07:40 | XMS_ITS ---
Author Organization [facility] Freddy cantrell [place] Address [address] [facility] [place] [address] Care Team Providers Care Psychologist Research Assistant Name Role Phone Eliceo Garrison MD Primary Care Provider River Edmond Unavailable [phone] Allergies No Known Allergies REASON FOR VISIT [...] 09/23/2023 Encounters Encounter Location Date Provider Diagnosis [facility] [place] [address] [facility] [place] [address] 09/23/2023 River Delvalle Pain in left foot [...] Notes * Andrea DAVIESDOB:1955 (68 yo M)Acc No.[id number]:09/23/2023 Progress Note Patient:?Andrea Davies Provider:Abena Delvalle DPM :1955???Age:68 Y???Sex:Male Garret e:09/23/2023 Address:[address] [place] [address] [id number] Pcp:Eliceo Garrison MD Subjective: * Chief Complaints: [...] need for a, Podiatry Surgical Consult at [facility] for right heel and achilles pain; 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 * Follow Up:?prn * Images: * Sign off status: Completed true * Provider:?River Delvalle DPM Date:? 023 Generated for Primitivo brenner/Bo/Hue on:?03/19/2025 07:40 AM EDT History and Physical Notes * [...] PIGMENTATION: normal, B/L Heel Pain INSPECTION: Prominent chief accountant ior and posterior/superior heel present , Pain on Palpation to Posterior Superior Aspect Calcaneus , Pain on Palpation to Achilles tendon/bursa with inflammation and swelling present , RIGHT
--- OUTSIDE RECORDS SUMMARY | 2025-03-19 07:40 | XMS_ITS ---
Author Organization [facility] Suellendivine [place] Address [address] [place] [address] Care Team Providers Care License Distributor Name Role Phone Eliceo Garrison MD Primary Care Provider River Edmond [phone] REASON FOR VISIT medical records request Encounters Encounter Location Date Provider Diagnosis [facility] [address] [place] [address] 12/05/2023 River Delvalle Plan Of Treatment No Information Progress Notes * AndreaDOB:1955 (68 yo M)Acc No.[id number]:12/05/2023 Patient:?Andrea Wasserman :1955???Age:68 Y???Sex:Male Address:[address] [place], [address] * true * Date:? Generated for Primitivo brenner/Bo/eTransmitting on:?03/19/2025 07:39 AM EDT
[2025-03-19 10:13] LABS: Appearance Urine Clear; Color Urine Yellow; Glucose Urine UA Negative (Negative); Leukocyte Esterase Urine Negative (Negative); Nitrite Urine Negative (Negative); PH 6.5 (5.0-9.0); Urine Blood Negative (Negative); Urine Ketones Negative (Negative); Urine Protein Negative (Neg-Trace)
[2025-03-19 10:14] LABS: Hematocrit 38.6 % (42.0-52.0); Hemoglobin 12.9 g/dl (14.0-18.0); Mean Corpuscular HGB Conc 33.4 g/dl (31.0-36.0); Mean Corpuscular Hemoglobin 29.5 pg (27.0-33.0); Mean Corpuscular Volume 88.1 fL (80.0-98.0); Mean Platelet Volume 10.5 fL (9.4-12.4); Platelet Count 255 X10*3/uL (160-400); Red Blood Count 4.38 X10*6/uL (4.60-5.80); Red Cell Distribution Width 13.3 % (11.0-16.0)
[2025-03-19 10:48] LABS: Alanine Aminotransferase 37 U/L (0-40); Albumin Level 3.8 g/dL (3.5-5.0); Alkaline Phosphatase 75 U/L (39-117); Anion Gap 12 (12-20); Aspartate Amino Transferase 31 U/L (5-37); Bilirubin Direct 0.2 mg/dL (0.0-0.5); Bilirubin Total 0.6 mg/dL (0.0-1.0); Blood Urea Nitrogen 26 mg/dL (9-16); Calcium 9.4 mg/dL (8.4-10.2); Carbon Dioxide 30 mmol/L (22-29); Chloride 106 mmol/L (96-108); Cholesterol 146 mg/dL (<200); Estimated Glomerular Filt Rate > 60; Glucose Random 121 mg/dL (60-115); HDL Cholesterol 39 mg/dL (>40); LDL Cholesterol Calculated 82 mg/dL (<100); Potassium 3.7 mmol/L (3.3-5.1); Sodium 144 mmol/L (135-145); Triglycerides 126 mg/dL (<150)
[2025-03-19 10:52] LABS: Thyroid Stimulating Hormone 1.41 uIU/mL (0.32-4.0)
== END 2025-03-19 07:38 | disposition home or self-care (01) ==
LOC: HO.10HDL 07:37
PROVIDERS: Visit Provider Internal Medicine
DX: I10 Essential (primary) hypertension (principal); E78.5 Hyperlipidemia, unspecified
CPT/HCPCS: 36415; 80048; 80061; 80076; 81003; 84443; 85027

== ENCOUNTER 2025-09-07 07:56 | Outpatient (AMB) | payer MEDICARE, OTHER, SELFPAY ==
--- OUTSIDE RECORDS SUMMARY | 2025-01-22 05:30 | XMS_ITS ---
Author Organization [facility] Address [address] [place] [address] Care Team Providers Care Diagnostic Sales Specialist Name Role Phone Meli (RETIRED) Eliceo ESPARZA Primary Care Provide Osvaldo Mckeon [phone] REASON FOR VISIT screening,hx polyps Encounters Encounter Location Date Provider Diagnosis [facility] [place] Outpatient [address] [place] [phone] 01/22/2025 Osvaldo Birmingham Colon cancer scree hao [...] DANAY DAVIES EDOB: 3 (70 yo M)Acc No.[id number]:01/22/2025 COLON WITH MAC Patient: DANAY FIELD Diego Provider: Thea Birmingham MD :1955 A ge:69 Y S ex:Male Date:01/22/2025 Address:[address] [place] [address], [place] Pcp:Eliceo Garrison (RETIRED )MD Subjective: * Chief [...] 01/22/2025 Generated for Primitivo brenner/Bo/Yuesmitting on: 1 07:59 AM EDT
--- NOTE | 2025-09-07 07:52 | A.OFFPC_ITS ---
Vital Signs 09/07/25 08:04 Height 5 ft 10.16 in Weight 232 lb BMI 33.1 BP 138/76 Blood Pressure Location Lt brachial Position Sitting Respiration 18 Pulse 60 Pulse Source Pulse Oximeter Temp 97.8 F Temp Source Temporal Artery Scan Pulse Oximetry (%) 98 Oxygen Delivery Method Room Air Intake Visit Reasons: routine Brand Attendant Required: No Accompanied by: Self / Same As Patient Allergies perflutren Adverse Reaction (Verified 09/07/25 07:52) Back Pain Medication List - Last Reconciled 09/07/25 by Ancelmo Alfaro MD acetaminophen 325 mg PO QID PRN amlodipine 5 mg PO DAILY atenolol 50 mg PO DAILY atorvastatin 10 mg PO DAILY chlorthalidone 25 mg PO DAILY fenofibrate 54 mg PO DAILY lorazepam 0.5 mg PO DAILY PRN losartan 100 mg PO DAILY omeprazole 40 mg PO DAILY Tobacco use date assessed: 03/15/25 Dental Screening Dental Screen Date: 03/15/25 HPI HPI Comments History of Present Illness Details The patient is a 70-year-old male presenting with complaints of sinus pressure, postnasal drip, dizziness, palpitations, and anxiety. The sinus pressure began approximately two weeks ago and has been improving but is still present. It was associated with headaches and dizziness upon standing. The patient reports that the sinus pressure caused a cough due to postnasal drip but denies trying any tooj-xso-uxajhzd treatments for relief. The cough produces small amounts of white phlegm, suggesting postnasal drip as the primary cause. He has a history of atrial fibrillation, which occurred transiently 25 years ago for about 12 hours, and again possibly noted in 2009. He reports recent feelings of palpitations or fluttering in the chest occurring over the past three weeks, sometimes occurring at night or after caffeine consumption. There were no episodes of nausea, vomiting, chest pain, or shortness of breath reported. These flutterings sometimes feel as though his heart wants to stop and start again, and he can occasionally feel them in his throat. He has not been on any prescribed blood thinners. The patient's history of anxiety was severe, prompting the use of lorazepam as needed, which he employs occasionally. His anxiety is a prevalent issue, and he reports frequent feelings of being anxious. Additionally, he has a history of hypertension managed with multiple medications, hypercholesterolemia, and hypertriglyceridemia. The patient reports insomnia and tends to snore, which may contribute to either sleep disruption or poor sleep quality. Medical History: - Hypertension - Atrial Fibrillation (transient episode 25 years ago, noted possibly again in 2009) - Hypercholesterolemia - Hypertriglyceridemia - Gastroesophageal Reflux Disease (GERD) - Anxiety - Diabetes Mellitus Type 2 - Insomnia Medications: - Amlodipine 5 mg for hypertension - Atenolol 50 mg for hypertension - Chlorthalidone 25 mg for hypertension - Losartan 100 mg for hypertension - Atorvastatin 10 mg for hypercholestero lemia - Fenofibrate 54 mg for hypertriglycerid emia - Omeprazole for GERD - Lorazepam as needed for anxiety Diagnostic Results: - Tests: EKG conducted showing no curren t evidence of atrial fibrillation. Social History: - Substance Use: Former smoker, quit 50 years ago. - Exercise: Walks daily as a form of phy sical activity. - Nutrition: Not explicitly detailed. - Snoring noted, which could affect slee p quality. [facility] Medical History (Updated 09/07/25 @ 08:40 by Ancelmo Alfaro MD) MARY KAY (obstructive sleep apnea) Post-nasal drip Anxiety Heart palpitations Diabetes Sleep apnea Choledocholithiasis Gallstones Hx of flexible sigmoidoscopy GERD (gastroesophageal reflux disease) IBS (irritable bowel syndrome) Hyperlipidemia Afib Hx of radiation therapy Prostate cancer HTN (hypertension) Tubular adenoma Surgical History Hx of appendectomy History of cholecystectomy History of surgery H/O anal fistulotomy History of hernia surgery H/O radical prostatectomy H/O colonoscopy (~01/22/25) History of esophagogastroduodenoscopy (EGD) Family History Mother Brain cancer Father Prostate cancer Social History Housing: House Patient Tobacco Use Status: Former Tobacco user e-Cigarette/Vaping Use: Former Use service: No Current occupational status: retired Cognitive needs: No Hearing needs: No Vision needs: Yes (reading glasses) Questionnaire Thrive Questionnaire Date Thrive assessed: 03/15/25 JORGE-7 AMB Questionnaire JORGE-7 Date JORGE - 7 assessed: 03/15/25 Source: Developed by Drs. Osvaldo L. RoseYu mann, Vernon Hernandez and colleagues, with an educational justice from [facility] [employer]. Review of Systems Narrative - Respiratory: Reports cough, postnasal drip; Denies shortness of breath, chest pain. - Neurological: Reports dizziness, headaches; Denies changes in vision. - Cardiovascular: Reports palpitations (fluttering sensation). - Gastrointestinal: Denies nausea, vomiting. - General: Reports anxiety and insomnia. All systems reviewed & are unremarkable except as reviewed in HPI and above Physical exam (Primary Care) Vital Signs: Last Vital Signs Temp 97.8 F 09/07/25 08:04 Pulse 60 09/07/25 08:04 Resp 18 09/07/25 08:04 BP 138/76 09/07/25 08:04 Pulse Ox 98 09/07/25 08:04 Oxygen Delivery Method Room Air 09/07/25 08:04 BMI result Body Mass Index 33.1 Tobacco/Smoking Status: Tobacco use Status Tobacco use date assessed 03/15/25 09/07/25 07:53 Patient Tobacco Use Status Former Tobacco user 09/07/25 07:53 e-Cigarette/Vaping Use Former Use 09/07/25 07:53 Thrive Assessment: Date of Thrive Assessment Date Thrive assessed 03/15/25 09/07/25 07:53 Narrative General: Alert and oriented, Well nourished, No acute distress. Eye: Pupils are equal, round and reactive to light, Intact accommodation, Extraocular movements are intact, Normal conjunctiva, Vision unchanged. HENT: Normocephalic, Atraumatic, Tympanic membranes are clear, Normal hearing, Oral mucosa is moist, No pharyngeal erythema, Ear canals patent. Respiratory: Lungs CTA bilaterally, No wheeze, Respirations are non-labored, Cough present with white phlegm. Cardiovascular: Regular rate, Regular rhythm, S1 auscultated, S2 auscultated, No murmur, Good pulses equal in all extremities, Normal peripheral perfusion, No edema, Reports of fluttering sensation in the chest. Gastrointestinal: Soft, Non-tender, Non-distended, Normal bowel sounds, No organomegaly. Musculoskeletal: Normal range of motion, Normal strength, No tenderness, No swelling, No deformity, Normal gait. Integumentary: Warm, Dry, [place], Intact. Neurologic: Alert, Oriented, Normal sensory, Normal motor function, No focal defects, Cranial Nerves II-XII are grossly intact, Normal deep tendon reflexes. Psychiatric: Cooperative, Appropriate mood & affect, Normal judgment, Reports of anxiety. Coding Level of Care Code Est Pt Level 4 (19767) Complex EM visit Add On G2211 Diagnoses Heart palpitations R00.2 Anxiety F41.9 HTN (hypertension) I10 Hypertension type: primary hypertension Hyperlipidemia E78.5 Hyperlipidemia type: other hyperlipidemia Diabetes E11.9 Diabetes mellitus type: type 2 Diabetes mellitus press tender long goods insulin use: without skilled nursing use Diabetes mellitus complication status: without complication Post-nasal drip R09.82 Assessment & Plan Assessment & Plan (1) Heart palpitations: Comment: Reports bouts where his heart starts racing real quick and self resolves. Does report a prior history of AFib and per chart did have a diagnosis in 2009. EKG Completed in clinic WNL (Sinus rocky with a rate of 53 likely secondary to Beta Blockers) Will obtain holter and refer to cardiology given prior history of A fib and reoccurance. Will also obtain sleep study given reports of snoring Code(s): R00.2 - Palpitations Category: Medical (2) Anxiety: Comment: - Initiate buspirone therapy, starting at 5mg BID, possibly increasing to three times daily for anxiety management without causing drowsiness. - Possibly contributing to palpitations Code(s): F41.9 - Anxiety disorder, unspecified Category: Medical (3) HTN (hypertension): Comment: - Current medication regimen to continue monitoring blood pressure levels. Code(s): I10 - Essential (primary) hypertension Category: Medical Qualifiers: Hypertension type: primary hypertension (4) Hyperlipidemia: Comment: - Continue with atorvastatin, educated on recent cholesterol management metrics. Code(s): E78.5 - Hyperlipidemia, unspecified Category: Medical Qualifiers: Hyperlipidemia type: other hyperlipidemia (5) Diabetes: Comment: - Plan for A1c test to assess current glycemic control - Last A1c at 6.4 from - If elevated with start on metformin Code(s): E11.9 - Type 2 diabetes mellitus without complications Category: Medical Qualifiers: Diabetes mellitus type: type 2 Diabetes mellitus skilled nursing insulin use: without skilled nursing use Diabetes mellitus complication status: without complication (6) Post-nasal drip: Comment: - Advise the use of loratadine for relief of postnasal drip associated with sinus pressure, as it is an antihistamine and non-sedative. Code(s): R09.82 - Postnasal drip Category: Medical Plan: Health Maintenance: - Promotion of exercise as maintained by patient?s daily walking regimen. - Discussion around potential purchase and use of a smartwatch for real-time cardiac monitoring. Patient was informed and verbally consented to the use of an ambient scribe for clinic note documentation during this visit. Plan I discussed with the patient the likely diagnosis of postnasal drip causing sinus pressure and cough, advising loratadine use. We reviewed the symptoms of dizziness and palpitations, for which an EKG was normal. I recommended using a smartwatch for AFib monitoring due to historical AFib episodes, and reducing caffeine intake as a potential trigger for palpitations. We discussed starting buspirone for chronic anxiety management, discontinuing sporadic use of lorazepam due to potential adverse effects. I emphasized the plan to monitor diabetes with an A1c test given his historical levels indicating a diabetes diagnosis. Orders: Orders Hemoglobin A1c Today E11.9 - Type 2 diabetes mellitus without complications AMB EKG-In Office Today I10 - Essential (primary) hypertension RT PSG in-lab sleep study Today G47.33 - Obstructive sleep apnea (adult) (pediatric) ECG 5 day holter monitor Today R00.2 - Palpitations Referrals Cardiology Referral R00.2 - Palpitations Medications: New buspirone 5 mg PO BID 180 tabs 0RF 90 days I10 - Essential (primary) hypertension loratadine 10 mg PO DAILY 30 tabs 0RF Patient Instructions: - Take loratadine as directed for postnasal drip. - Reduce caffeine intake to manage palpitations. - Consider using a smartwatch for monitoring heart rates. - Follow the new medication plan for anxiety and monitor symptoms. - Get the scheduled blood tests done, specifically for A1c. - Maintain current hypertensive and cholesterol treatment plans.
--- OUTSIDE RECORDS SUMMARY | 2025-09-07 07:59 | XMS_ITS | Patient Health Record ---
Author Organization [facility] Freddy tamia Anish Address [address] [facility] [place] [address] Care Team Providers Care Fall Internship Name Role Phone Eliceo Garrison MD Primary Care Provider River Laureano Unavailable [phone] Allergies No Known Allergies Reason For Referral No Information Medications Medication SIG (Take, Route, Frequency, Duration) Notes Start Date End Date Status Fenofibrate Active Prevacid Active Atorvastatin Calcium Active Atenolol 50 MG 1 tablet Orally Once a day; Duration: 30 day(s) Active Night Splint AFO - L1930 as directed 05/27/2023 Active Physical Therapy . . . 2-3x/week; Durat ion: 3-4 weeks 07/08/2023 Active Feldene 20 MG 1 capsule with food Orally Once a day; Duration: 30 day(s) 07/08/2023 Active Social History Tobacco [...] Problem Acquired hammer toe of right foot ([id number]) Other hammer toe(s) (acquired), right foot [...] Inc [address] [place] [address] [id number] Andrea Wasserman Self - patient is the insured [facility] [address] [facility] [address] [phone] [id number] Andrea Wasserman Self - patient is the insured Medical (General) History Medical History History ICD Code Anxiety Measles Chicken pox Surgical History Surgery Date(Month/Year)
--- OUTSIDE RECORDS SUMMARY | 2025-09-07 07:59 | XMS_ITS | Clinical Summary ---
Author Organization [facility] Address [address] [place] [address] Phone Care Team Providers Care Distribution Sales Manager Name Role Phone Pcp, Unknown Primary Care Provider Unavailabl e Social History Tobacco Use Types Packs/Day Years Used Date Smoking Tobacco: Never Assessed Education Answer Date Recorded Are you interested in more education? Not on lavonne e 02/23/2025 Are you concerned about learning? Not on file 02/23/2025 No 02/23/2025 No 02/23/2025 Digital Access Answer Date Recorded No 02/23/2025 No 02/23/2025 Reliable internet access at home? Not on file 02/23/2025 Device with a working camera? Not on file Sex and Gender Information Value Date Recorded Sex Assigned at Not on file Legal Sex Male 5:01 PM EST Gender Identity Not on file Sexual Orientation Not on file Plan of Treatment Upcoming Encounters Date Type Department Care Team ([facility] st Contact Info) Description 11/12/2025 8:00 AM EST Office Visit [address] [address] Jb Steven MD [address] [place] [address] [address] [place] [address] [email or web address] Health Maintenance Due Date Last Done Comments Adult Td,Tdap Booster 1953 LIPID PANEL 1953 DEPRESSION SCREENING 1965 SMOKING Hx and SMOKELESS TOB ACCO SCREENING 1966 HEPATITIS C SCREENING 1971 COLOGUARD 1998 COLONOSCOPY 1998 COLORECTAL CANCER SCREENING 1998 FIT TEST 1998 FOBT 1998 SIGMOIDOSCOPY 1998 VIRTUAL COLONOSCOPY 1998 PNEUMOCOCCAL VACCINES (50+ y ears) (1 of 1 - PCV) 2003 ZOSTER VACCINES (1 of 2) 2003 INFLUENZA VACCINE (#1) 2025 COVID-19 VACCINE (1 - 2024-2 6 season) 2025 RSV VACCINE (1 - 1-dose 75+ series) 2028 HEPATITIS A VACCINES Aged Out No long er eligible based on patient's age to complete this topic HIB VACCINES Aged Out No longer eligi ble based on patient's age to complete this topic MENINGOCOCCAL VACCINES (ACWY) Aged Out No longer eligible based on patient's age to complete this topic MENINGOCOCCAL VACCINES (B) Aged Out N o longer eligible based on patient's age to complete this topic Medical Devices Not on file Insurance MEDICARE PART A & B Member Subscriber Plan / Payer (Ef fective 2018-Present) Name:Andrea Wasserman Member ID:[id number] Relation to Subscriber:Self Name:Andrea Wasserman Subscriber ID:[id number] Payer ID:[id number] Group ID:Not on file Type:Medicare Address: [address] [place] [place] [address] MEDICARE SUPPLEMENT MEDICARE PART A & B Member Subscriber Plan / Payer ( fective 2018-Present) Name:Andrea Wasserman Member ID:[id number] Relation to Subscriber:Self Name:Andrea Wasserman Subscriber ID:[id number] Payer ID:[id number] Group ID:Not on file Type:Medicare Address: [facility] [place] [facility] [address] MEDICARE SUPPLEMENT MEDICARE PART A & B MEDICARE SUPPLEMENT MEDICARE PART A & B MEDICARE SUPPLEMENT MEDICARE PART A & B [facility] MEDICARE SUPPLEMENT MEDICARE PART A & B [facility] MEDICARE SUPPLEMENT Care Teams Distribution Sales Manager Relationship Specialty Start Date End Date Pcp, Unknown PCP - General 02/23/25 Additional Source Comments The information contained in this document represents components of the legal health record. It is not the complete legal health record.[facility]
--- OUTSIDE RECORDS SUMMARY | 2025-09-07 07:59 | XMS_ITS | Patient Health Record ---
Author Organization [facility] Address [address] [place] [address] Care Team Providers Care Hogshead Head Matcher Name Role Phone Meli (RETIRED) Eliceo ESPARZA Primary Care Provide r Osvaldo Quesada Unavailable [phone] Allergies No Known Allergies Results Component Value Reference Range Notes Pathology (Not yet reviewed by provider) Interpretation: Performing Lab:[facility], [address] [place] [id number] Notes/Report: Reason For Referral No Information Medications Medication SIG (Take, Route, Frequency, Duration) Notes Start Date End Date Status Atenolol 50 MG 1 tablet Orally Once a day; Duration: 30 day(s) Active Omeprazole 20 MG 1 capsule Orally Onc e a day Active Tylenol 325 MG 1 tablet as needed O rally prn Active Chlorthalidone 25 MG Oral; Duration: 90 Active amLODIPine Besylate 5 MG Oral; Duration: 90 Active Fenofibrate 54 MG TAKE 1 TABLET BY TILA EVERY DAY Oral; Duration: 90 Active Losartan Potassium 100 MG 1 tablet Orall y Once a day; Duration: 30 day(s) Active Atorvastatin Calcium 10 MG 1 tablet Oral ly Once a day; Duration: 30 day(s) Active Cholestyramine 4 GM/DOSE use anywhere fr om 1/4 to 1 full scoop in 8 ounces of water or orange juice Orally Once or Twice a day for loose stools and diarrhea; Duration: 30 day(s) 09/25/2024 Active Immunizations Vaccine Route Administration Date Status Comme nts Influenza Unknown 09/03/2018 Administered Influenza Unknown 09/01/2024 Administered Problems Problem Type SNOMED Code ICD Code Onset Dates Problem Status W/U Status Risk Notes Problem Screening for malignant neoplasm of colon (175536703) Encounter for screening for malignant neoplasm of colon (Z12.11) Active confirmed Problem Elevated liver enzymes level (578114931) Elevated liver enzymes (R74.8) Active confirmed Problem Gallstones (006626874) Gallstones (K80.20) Active confirmed Problem History of adenomatous polyp of colon (981845495) Hx of adenomatous colonic polyps (Z86.010) Active confirmed Problem Elevated liver enzymes level (020761356) Elevated liver function tests (R94.5) Active confirmed Problem Essential hypertension (49159273) Hypertension, unspecified type (I10) Active confirmed Problem Intestinal malabsorption (973363891) 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 Vital Signs Temperature 97.5 degrees Fahrenheit 09/25/2024 Blood pressure diastolic 00 mm Hg 09/25/2024 Height 72 in 09/25/2024 Blood pressure systolic 000 mm Hg 09/25/2024 Weight 242 lb 8 oz lbs 09/25/2024 BMI 32.89 kg/m2 09/25/2024 Encounters Encounter Location Date Provider Diagnosis [facility] Outpatient [address] [place] [id number] 01/22/2025 Osvaldo [place] Colon cancer screeni ng Z12.11 ; Personal history of colonic polyps Z86.0100 ; Colon polyps K63.5 ; Diverticulosis of large intestine without perforation or abscess without bleeding K57.30 and Other hemorrhoids K64.8 [facility] [address] [place] [address] 09/25/2024 Osvaldo [place] Hx of adenomatous colonic polyps Z86.010 ; Bile salt-induced diarrhea K90.89 and Encounter for screening for malignant neoplasm of colon Z12.11 Assessments Encounter Date Diagnosis (ICD Code) Assessment Notes Treatment Notes Treatment Clinical Notes Section Notes 01/22/2025 Colon cancer screening (ICD-10 - Z12.11) 01/22/2025 Personal history of colonic polyps (ICD-10 - Z86.0100) 09/25/2024 Hx of adenomatous colonic polyps (ICD-10 - Z86.010) Do not take the Chlorthalidone the day before nor on the day of the colonoscopy Overall, Danay appears well from a clinical standpoint. He is not having any particularly worrisome GI complaints. In regard to his irregular bowel movements and some abdominal discomfort we did review that this could represent some component of lactose intolerance given his daily use of some dairy products. We also reviewed that might represent a component of some bile induced diarrhea in relation to the previous cholecystectomy. He has had previous radiation treatments for prostate cancer and this raises the possibility of a radiation-induce d proctitis, but that is typically more associated with some urgency with associated bleeding and mucous in the bowel movements. I have recommended that he switched to lactose-free milk for a trial to see if that gives him any relief of his symptoms. I will also give him a prescription to try cholestyramine to see if that gives him any relief in the event we dealing with some component of a bile-induced diarrhea secondary to his previous cholecystectomy. I did recommend a followup colonoscopy for further screening given his history of tubular adenomas as last colonoscopy being over 5 years ago. We did review the rationale for that in regard to colon cancer prevention. Full consent was obtained from him for this, including risks of bleeding and perforation. The procedure will be done with monitored anesthesia care. He was given the below instructions regarding the adjustment of his medication for the procedure. Danay was comfortable with this plan. Thank you again for allowing me to participate in Danay's care. I shall continue to keep you advised of his progress. 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 He is not having any particularly worrisome GI complaints. In regard to his irregular bowel movements and some abdominal discomfort we did review that this could represent some component of lactose intolerance given his daily use of some dairy products. We also reviewed that might represent a component of some bile induced diarrhea in relation to the previous cholecystectomy. He has had previous radiation treatments for prostate cancer and this raises the possibility of a radiation-induce d proctitis, but that is typically more associated with some urgency with associated bleeding and mucous in the bowel movements. I have recommended that he switched to lactose-free milk for a trial to see if that gives him any relief of his symptoms. I will also give him a prescription to try cholestyramine to see if that gives him any relief in the event we dealing with some component of a bile-induced diarrhea secondary to his previous cholecystectomy. I did recommend a followup colonoscopy for further screening given his history of tubular adenomas as last colonoscopy being over 5 years ago. We did review the rationale for that in regard to colon cancer prevention. Full consent was obtained from him for this, including risks of bleeding and perforation. The procedure will be done with monitored anesthesia care. He was given the below instructions regarding the adjustment of his medication for the procedure. Danay was comfortable with this plan. Thank you again for allowing me to participate in Danay's care. I shall continue to keep you advised of his progress. 01/22/2025 Colon polyps (ICD-10 - K63.5) 09/25/2024 Encounter for screening for malignant neoplasm of colon (ICD-10 - Z12.11) Overall, Danay appears well from a clinical standpoint. He is not having any particularly worrisome GI complaints. In regard to his irregular bowel movements and some abdominal discomfort we did review that this could represent some component of lactose intolerance given his daily use of some dairy products. We also reviewed that might represent a component of some bile induced diarrhea in relation to the previous cholecystectomy. He has had previous radiation treatments for prostate cancer and this raises the possibility of a radiation-induce d proctitis, but that is typically more associated with some urgency with associated bleeding and mucous in the bowel movements. I have recommended that he switched to lactose-free milk for a trial to see if that gives him any relief of his symptoms. I will also give him a prescription to try cholestyramine to see if that gives him any relief in the event we dealing with some component of a bile-induced diarrhea secondary to his previous cholecystectomy. I did recommend a followup colonoscopy for further screening given his history of tubular adenomas as last colonoscopy being over 5 years ago. We did review the rationale for that in regard to colon cancer prevention. Full consent was obtained from him for this, including risks of bleeding and perforation. The procedure will be done with monitored anesthesia care. He was given the below instructions regarding the adjustment of his medication for the procedure. Danay was comfortable with this plan. Thank you again for allowing me to participate in Danay's care. I shall continue to keep you advised of his progress. 01/22/2025 Diverticulosis of large intestine without perforation or abscess without bleeding (ICD-10 - K57.30) 01/22/2025 Other hemorrhoids (ICD-10 - K64.8) Plan Of Treatment Pending Test Test Name Order Date Pathology 01/22/2025 Future Test Test Name Order Date UPPER GI ENDOSCOPY 07/20/2014 COLONOSCOPY 07/20/2014 COLONOSCOPY 04/28/2019 ERCP REMOVAL OF STONES 08/11/2019 COLONOSCOPY 09/25/2024 Insurance Providers Payer Name Payer Address Payer Phone Subscriber Number Group Number Insured Name Patient Relationship to Insured Coverage Start Date Coverage End Date MEDICARE OF [place] [address] [place] [address] [phone] [id number] DANAY DAVIES Self - patient is the insured [facility] [address] [facility] [place] [phone] [id number] DANAY DAVIES Self - patient is the insured Medical (General) History Medical History History ICD Code Hx of tubular adenomas-2004 and 2008 Hypertension Prostate cancer in 12/2008; h ad rising PSA Rx'd with XRT in Spring 2010; started hormone therapy in 2018 Denies FL,DM,CVA,Lung disease,renal dise ase Afib--resolved Hyperlipidemia Irritable bowel syndrome--ne gative lab work celiac disease in the past, and a negative small bowel series in 2005; normal duodenal biopsies in 2013 Flexible sigmoidoscopy in 2011 revealing some mild telangiectasias in the rectum from radiation treatments, as well as a small fissure that was treated by Dr. Castle GERD--EGD in 10/2014-minimal HH, no Pathak ett's, no esophagitis Colonoscopy in 10/2014-small tubular vicky nomas removed Gallstones--Probably passed a CBD stone in 02/2019-saw Dr. Castillo--has not had a CCY as of 04/28/19 Colonoscopy 07/29/19-2 tubular adenomas r emoved ERCP 08/14/19--this was done preoperatively for gallstones and he was found to have choledocholithiasis which were removed by sphincterotomy and balloon extraction Surgical History Surgery Date(Month/Year) Radical prostatectomy 12/2008 Hernia surgery Fistulotomy by Dr. Castle 05/2012 CCY 2019
[2025-09-07 08:04] VITALS: BP 138/76; PULSE 60; RESP 18; TEMP 36.6; O2SAT 98; BMI 33.1
== END 2025-09-07 08:40 | disposition home or self-care (01) ==
PROVIDERS: PCP Student in an Organized Health Care Education/Training Program; Visit Provider Student in an Organized Health Care Education/Training Program
DX: R00.2 Palpitations (principal); F41.9 Anxiety disorder, unspecified; I10 Essential (primary) hypertension; E78.5 Hyperlipidemia, unspecified; E11.9 Type 2 diabetes mellitus without complications; R09.82 Postnasal drip

== ENCOUNTER 2025-09-07 07:56 | Outpatient (REF) | payer MEDICARE, OTHER, SELFPAY | END 2025-09-07 07:57 | disposition home or self-care (01) | LOC: HO.10HDL 07:56 | PROVIDERS: PCP Internal Medicine; Visit Provider Student in an Organized Health Care Education/Training Program | DX: I10 Essential (primary) hypertension (principal); R09.82 Postnasal drip; R00.2 Palpitations; F41.9 Anxiety disorder, unspecified; E11.9 Type 2 diabetes mellitus without complications; E78.5 Hyperlipidemia, unspecified; Z79.899 Other long term (current) drug therapy | CPT/HCPCS: 36415; 83036; 99212 ==

== ENCOUNTER → 2025-09-21 08:12 | Outpatient (REF) | payer MEDICARE, OTHER, SELFPAY ==
--- OUTSIDE RECORDS SUMMARY | 2025-01-22 04:30 | XMS_ITS ---
Author Organization [facility] Address [address] [place] [address] Care Team Providers Care Knot Saw Operator Name Role Phone Meli (RETIRED) Eliceo ESPARZA Primary Care Provide Osvaldo Mckeon [phone] REASON FOR VISIT screening,hx polyps Encounters Encounter Location Date Provider Diagnosis [facility] [place] Outpatient [address] [place] [phone] 01/22/2025 Osvaldo Birmingham Colon cancer scree hao Z12.11 ; Personal history of colonic polyps Z86.0100 ; Colon polyps K63.5 ; Diverticulosis of large intestine without perforation or abscess without bleeding K57.30 and Other hemorrhoids K64.8 Assessments Encounter Date Diagnosis (ICD Code) Assessment Notes Treatment Notes Treatment Clinical Notes Section Notes 01/22/2025 Colon cancer screening (ICD-10 - Z12.11) 01/22/2025 Personal history of colonic polyps (ICD-10 - Z86.0100) 01/22/2025 Colon polyps (ICD-10 - K63.5) 01/22/2025 Diverticulosis of large intestine without perforation or abscess without bleeding (ICD-10 - K57.30) 01/22/2025 Other hemorrhoids (ICD-10 - K64.8) Plan Of Treatment No Information Progress Notes * DANAY DAVIES EDOB: 3 (70 yo M)Acc No.[id number]:01/22/2025 COLON WITH MAC Patient: DANAY FIELD Diego Provider: Thea Birmingham MD :1955 A ge:69 Y S ex:Male Date:01/22/2025 Address:[address] [place] [address], [id number] Pcp:Eliceo Garrison (RETIRED )MD Subjective: * Chief Complaints: * 1 . Screening,hx polyps. * Medical History: Objective: * Vitals: Assessment: * Assessment: 1. C olon cancer screening - Z12.11 (Primary) 2 . P ersonal history of colonic polyps - Z86.0100 3 . C olon polyps - K63.5 4 . D iverticulosis of large intestine without perforation or abscess without bleeding - K57.30 5 . O ther hemorrhoids - K64.8 Plan: * Treatment: * Procedure Codes: 4 5380 COLONOSCOPY AND BIOPSY, Modifiers: PT , 0529F INTRVL 3+YRS PTS CLNSCP DOCD, 0528F RCMND FLW-UP 10 YRS DOCD * * The named appointment provid er may or may not be the originator of this progress note, and it is not deemed complete until electronically signed by the appointment provider. Sign off status: Pending * Provider: Thea Birmingham MD Date: 0 01/22/2025 Generated for Primitivo brenner/Bo/Yuesmitting on: 1 11/21/2024 08:32 AM EST
--- NOTE | 2025-09-21 08:15 | HM_ITS ---
* Total monitoring time 7 days. * Underlying rhythm is sinus with an average rate of 74/Min. * Frequent supraventricular ectopy with a burden of 10%. Short runs noted. * Rare ventricular ectopy. Two short runs, up to 5 beats. * No significant pauses or high-grade AV blocks. * No patient markers or diary events. MTDD
--- OUTSIDE RECORDS SUMMARY | 2025-09-21 08:32 | XMS_ITS | Patient Health Record ---
Author Organization [facility] Address [address] [place] [address] Care Team Providers Care Water Jet Loom Fixer Name Role Phone Meli (RETIRED) Eliceo ESPARZA Primary Care Provide r Osvaldo Quesada Unavailable [phone] Allergies No Known Allergies Results Component Value Reference Range Notes Pathology (Not yet reviewed by provider) Interpretation: Performing Lab:[facility], [address] [place] [phone] Notes/Report: Reason For Referral No Information Medications [...] Problem Screening for malignant neoplasm of colon (446136758) Encounter for screening for malignant neoplasm of colon (Z12.11) Active confirmed Problem Elevated liver enzymes level (603640244) Elevated liver enzymes (R74.8) Active confirmed Problem Gallstones (214125474) Gallstones (K80.20) Active confirmed Problem History of adenomatous polyp of colon (692948324) Hx of adenomatous colonic polyps (Z86.010) Active confirmed Problem Elevated liver enzymes level (371258465) Elevated liver function tests (R94.5) Active confirmed Problem Essential hypertension (30058566) Hypertension, unspecified type (I10) Active confirmed Problem Intestinal malabsorption (869351581) 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 Vital Signs Temperature 97.5 degrees Fahrenheit 09/25/2024 Blood pressure diastolic 00 mm Hg 09/25/2024 Height 72 in 09/25/2024 Blood pressure systolic 000 mm Hg 09/25/2024 Weight 242 lb 8 oz lbs 09/25/2024 BMI 32.89 kg/m2 09/25/2024 Encounters Encounter Location Date Provider Diagnosis [facility] Outpatient [address] [place] [id number] 01/22/2025 Osvaldo [place] Colon cancer screeni ng Z12.11 ; Personal history of colonic polyps Z86.0100 ; Colon polyps K63.5 ; Diverticulosis of large intestine without perforation or abscess without bleeding K57.30 and Other hemorrhoids K64.8 [facility] [address] [place] [address] 09/25/2024 Osvaldo [place] Hx of adenomatous colonic [...] the diarrhea Start a lactose-free milk, like [place] Milk, to see if that helps with [...] OF [place] [address] [place] [address] [id number] DANAY DAVIES Self - patient is the insured [facility] [address] [facility] [place] [phone] [id number] DANAY DAVIES Self - patient is the insured Medical (General) History Medical History History ICD Code Hx of tubular adenomas-2004 and 2008 Hypertension Prostate cancer in 12/2008; h ad rising PSA Rx'd with XRT in Spring 2010; started hormone therapy in 2018 Denies ID,DM,CVA,Lung disease,renal dise ase Afib--resolved Hyperlipidemia Irritable bowel [...]
--- OUTSIDE RECORDS SUMMARY | 2025-09-21 08:32 | XMS_ITS | Clinical Summary ---
Author Organization [facility] Address [address] [place] [address] Phone Care Team Providers Care Tree Cutter Name Role Phone Pcp, Unknown Primary Care [...] Upcoming Encounters Date Type Department Care Team ([facility] st Contact Info) Description 11/12/2025 8:00 AM EST Office Visit [address] [address] Jb Steven MD [address] [place] [address] [address] [place] [address] [email or web address] Health Maintenance Due Date Last Done Comments [...] Payer (Ef fective 2018-Present) Name:Andrea Wasserman Member ID:[id number] Relation to Subscriber:Self Name:Andrea Wasserman Subscriber ID:[id number] Payer ID:[id number] Group ID:Not on file Type:Medicare Address: [address] [place] [address] [address] MEDICARE SUPPLEMENT MEDICARE PART A & B Member Subscriber Plan / Payer ( fective 2018-Present) Name:Andrea Wasserman Member ID:[id number] Relation to Subscriber:Self Name:Andrea Wasserman Subscriber ID:[id number] Payer ID:[id number] Group ID:Not on file Type:Medicare Address: [facility] [employer] [facility] [address] MEDICARE SUPPLEMENT MEDICARE PART A & B MEDICARE SUPPLEMENT MEDICARE PART A & B MEDICARE SUPPLEMENT MEDICARE PART A & B [facility] MEDICARE SUPPLEMENT MEDICARE PART A & B [facility] MEDICARE SUPPLEMENT Care Teams Tree Cutter Relationship Specialty Start Date End Date Pcp, Unknown PCP - General 02/23/25 Additional Source Comments The information contained in this document represents components of the legal health record. It is not the complete legal health record.[facility]
--- OUTSIDE RECORDS SUMMARY | 2025-09-21 08:33 | XMS_ITS | Patient Health Record ---
Author Organization [facility] Freddy tamia Anish Address [address] [place] [address] Care Team Providers Care Assembler Sandal Parts Name Role Phone Eliceo Garrison MD Primary Care Provider River Laureano Unavailable [phone] Allergies No Known Allergies Reason For Referral [...] Problem Acquired hammer toe of right foot (4389630628627 105) Other hammer toe(s) (acquired), right foot [...] Inc [address] [place] [address] [id number] Andrea Wasserman Self - patient is the insured [facility] [address] [facility] [place] [address] [phone] [id number] Andrea Wasserman Self - patient is the insured Medical (General) History Medical History History ICD Code Anxiety Measles Chicken pox Surgical History Surgery Date(Month/Year)
== END ==
LOC: HO.CARD 08:12
PROVIDERS: PCP Student in an Organized Health Care Education/Training Program; Visit Provider Student in an Organized Health Care Education/Training Program
DX: R00.2 Palpitations (principal)
CPT/HCPCS: 93242

== ENCOUNTER → 2025-09-21 08:15 | Outpatient (BNV) | payer MEDICARE, OTHER, SELFPAY | PROVIDERS: PCP Student in an Organized Health Care Education/Training Program; Visit Provider Internal Medicine | DX: I49.49 Other premature depolarization (principal); I49.3 Ventricular premature depolarization | CPT/HCPCS: 93244 ==

== ENCOUNTER → 2025-10-22 19:30 | Outpatient (REF) | payer MEDICARE, OTHER, SELFPAY ==
--- OUTSIDE RECORDS SUMMARY | 2025-10-22 20:08 | XMS_ITS | Clinical Summary ---
Author Organization [facility] Address [address] [place] [address] Phone Care Team Providers Care Electrician Front Name Role Phone Pcp, Unknown Primary Care [...] Upcoming Encounters Date Type Department Care Team ([facility] st Contact Info) Description 06/17/2026 8:00 AM EDT Office Visit [address] [address] Jb Steven MD [address] [place] [address] [address] [place] [address] [email or web address] Health Maintenance Due Date Last Done Comments [...] Payer (Ef fective 2018-Present) Name:Andrea Wasserman Member ID:[id number] Relation to Subscriber:Self Name:Andrea Wasserman Subscriber ID:[id number] Payer ID:[id number] Group ID:Not on file Type:Medicare Address: [address] [place] [address] MEDICARE SUPPLEMENT MEDICARE PART A & B Member Subscriber Plan / Payer ( fective 2018-Present) Name:Andrea Wasserman Member ID:[id number] Relation to Subscriber:Self Name:Andrea Wasserman Subscriber ID:[id number] Payer ID:[id number] Group ID:Not on file Type:Medicare Address: [facility] [employer] [facility] [address] MEDICARE SUPPLEMENT MEDICARE PART A & B MEDICARE SUPPLEMENT MEDICARE PART A & B MEDICARE SUPPLEMENT MEDICARE PART A & B [facility] MEDICARE SUPPLEMENT MEDICARE PART A & B [facility] MEDICARE SUPPLEMENT Care Teams Electrician Front Relationship Specialty Start Date End Date Pcp, Unknown PCP - General 02/23/25 Additional Source Comments The information contained in this document represents components of the legal health record. It is not the complete legal health record.[facility]
== END ==
LOC: HO.SL 19:30
PROVIDERS: PCP Student in an Organized Health Care Education/Training Program; Visit Provider Student in an Organized Health Care Education/Training Program
DX: G47.33 Obstructive sleep apnea (adult) (pediatric) (principal); G47.61 Periodic limb movement disorder
CPT/HCPCS: 95810

== ENCOUNTER → 2025-10-22 19:42 | Outpatient (BNV) | payer MEDICARE, OTHER, SELFPAY | PROVIDERS: PCP Student in an Organized Health Care Education/Training Program; Visit Provider Internal Medicine | DX: G47.33 Obstructive sleep apnea (adult) (pediatric) (principal); G47.61 Periodic limb movement disorder | CPT/HCPCS: 95810 ==

== ENCOUNTER 2025-11-08 13:58 | Outpatient (AMB) | payer MEDICARE, OTHER, SELFPAY ==
--- OUTSIDE RECORDS SUMMARY | 2025-01-22 04:30 | XMS_ITS ---
Author Organization [facility] Address [address] [place] [address] Care Team Providers Care Meat Butcher Name Role Phone Meli (RETIRED) Eliceo ESPARZA Primary Care Provide Osvaldo Mckeon [phone] REASON FOR VISIT screening,hx polyps Encounters Encounter Location Date Provider Diagnosis [facility] [place] [address] [place] [phone] 01/22/2025 Osvaldo Birmingham Colon cancer scree hao [...] DANAY DAVIES EDOB: 3 (70 yo M)Acc No.[id number]:01/22/2025 COLON WITH MAC Patient: DANAY FIELD Diego Provider: Thea Birmingham MD :1955 A ge:69 Y S ex:Male Date:01/22/2025 Address:[address] [place] [address], [place] [id number] Pcp:Eliceo Garrison (RETIRED )MD Subjective: * Chief Complaints: * S creening,hx polyps Assessment: * Assessment: 1. C olon cancer screening - Z12.11 (Primary) 2 . P ersonal history of colonic polyps - Z86.0100 3 . C olon polyps - K63.5 4 . D iverticulosis of large intestine without perforation or abscess without bleeding - K57.30 5 . O ther hemorrhoids - K64.8 Plan: * Procedure Codes: 4 5380 COLONOSCOPY AND BIOPSY, Modifiers: PT 0529F INTRVL 3+YRS PTS CLNSCP [id number] RCMND FLW-UP 10 YRS DOCD Billing Information: * Procedure Codes: 00335 COLONOSCOPY AND BIOPSY. Modifiers: PT 0529F INTRVL 3+YRS PTS CLNSCP DOCD. 0528F RCMND FLW-UP 10 YRS DOCD. * The named appointment provid er may or may not be the originator of this progress note, and it is not deemed complete until electronically signed by the appointment provider. Sign off status: Pending * Provider: Thea Birmingham MD Date: 0 01/22/2025 Generated for Primitivo brenner/Bo/Bostonitting on: 01/09/2025 05:27 PM EST
[2025-11-08 14:07] VITALS: BP 130/78; PULSE 95; BMI 33.5
--- NOTE | 2025-11-08 14:07 | MHC.OFFVIS ---
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 He has a remote history of atrial fibrillation about 20 years ago when apparently last for about 12 hours. He has had symptoms of palpitations/heartbeat in his throat area. Nonspecific tiredness/fatigue. He recently underwent Holter monitor and that showed frequent supraventricular ectopy but no clear-cut atrial fibrillation. However, today's EKG shows atrial fibrillation with controlled ventricular response. Otherwise, no known coronary disease or myocardial infarction or cardiomyopathy. No other symptoms like exertional angina. His functional status is maintained, as he can walk and go up and down stairs without having to stop. Relevant past medical history includes prostate cancer treated with surgery, which results in frequent urination at night. A sleep study a few weeks ago was negative for sleep apnea. He also has a history of sinus problems and experiences occasional nosebleeds when blowing his nose, particularly during dry seasons or after a cold. [facility], [facility] Medical History (Updated 11/08/25 @ 15:41 by Dedrick Durán MD) MARY KAY (obstructive sleep apnea) Post-nasal drip Anxiety Heart palpitations Diabetes Sleep apnea Choledocholithiasis Gallstones Hx of flexible sigmoidoscopy GERD (gastroesophageal reflux disease) IBS (irritable bowel syndrome) Hyperlipidemia Afib Hx of radiation therapy Prostate cancer HTN (hypertension) Tubular adenoma Surgical History Hx of appendectomy History of cholecystectomy History of surgery H/O anal fistulotomy History of hernia surgery H/O radical prostatectomy H/O colonoscopy (~01/22/25) History of esophagogastroduodenoscopy (EGD) Family History Mother Brain cancer Father Prostate cancer Social History (Updated 11/08/25 @ 14:18 by Kerri Henderson) Housing: House Alcohol intake: current Alcohol intake frequency: holidays/special occasions only Patient Tobacco Use Status: Former Tobacco user e-Cigarette/Vaping Use: Former Use service: No Current occupational status: retired Cognitive needs: No Hearing needs: No Vision needs: Yes (reading glasses) Review of Systems Const Denies weakness ENT Denies dizziness Card Denies chest pain, Denies chest pain with activity, Denies syncope, Denies rapid heart rate, Denies pedal edema, Denies edema, Denies leg edema, Denies lightheadedness, Reports palpitations, Denies dyspnea, Denies dyspnea on exertion and Denies orthopnea Resp Denies cough, Denies dyspnea and Denies dyspnea on exertion GI Denies hematochezia and Denies change in stool character Musc Denies abnormal gait, Denies muscle cramps, Denies muscle weakness, Denies numbness, Denies radiating pain into limb and Denies tingling Neuro Denies abnormal gait, Denies dizziness, Denies syncope, Denies numbness, Denies tingling and Denies weakness Endo Reports palpitations Physical Exam Vital Signs: Last Vital Signs Pulse 95 11/08/25 14:07 BP 130/78 11/08/25 14:07 BMI result Body Mass Index 33.5 Const General: comfortable and no acute distress Orientation/consciousness: patient oriented x3 HEENT Other: Unremarkable Head: Yes normal to inspection Neck Neck: Yes normal visual inspection Chest Chest palpation & inspection: normal inspection of the chest Resp Auscultation: clear to auscultation bilaterally Cardio Palpation: normal PMI Heart sounds: S1 normal heart sound present, S2 normal heart sound present, no gallops, no murmurs and no rubs GI Palpation (GI): Soft to palpation Back/Spine/Pelvis Other: unremarkable Skin General skin exam: no rashes or lesions noted Neuro General: patient oriented x3 Extrem General: Yes normal to inspection Psych Mental Status: mental status grossly normal Office Procedures EKG Details: EKG with atrial fibrillation at a rate of 95/Min. Mildly prolonged QT at 490 milliseconds. [id number], Complete Assessment & Plan Assessment & Plan (1) Atrial fibrillation by electrocardiogram: Code(s): I48.91 - Unspecified atrial fibrillation Category: Medical Plan Assessment and Plan 1. Atrial Fibrillation The patient has a new diagnosis of atrial fibrillation. The primary concern is the increased risk of stroke due to potential blood clot formation. His heart rate is currently controlled at 95 bpm. The chronicity and burden of AFib are unclear. The plan is to start Eliquis for anticoagulation to reduce stroke risk. Will order baseline blood work to ensure it is safe to start the medication. An echocardiogram will be ordered to evaluate heart function. A 2-week Holter monitor will be ordered to assess if the AFib is persistent or paroxysmal. Future considerations if the AFib persists include electrical cardioversion. The patient will follow up in a couple of months to review results. 2. History of epistaxis The patient's history of nosebleeds is a relative concern given the plan to start anticoagulation. He has been counseled on applying direct pressure if a nosebleed occurs. He was advised to seek emergency care for any bleeding that does not stop. Long-term alternatives to blood thinners, such as a Watchman device, were mentioned as a possibility if bleeding becomes a significant issue. Discussion Notes I had a detailed discussion with the patient regarding his new diagnosis of atrial fibrillation. I explained that in AFib, the top chambers of the heart quiver, which can lead to blood stagnation and the formation of clots. I emphasized that the primary risk is a stroke, and therefore, starting a blood thinner, Eliquis, is necessary for prevention. I informed him that this medication would likely need to be taken twice daily for the rest of his life, even if his heart rhythm returns to normal, as AFib can be intermittent. We addressed his history of occasional nosebleeds. I advised him on management, including applying pressure and seeking emergency care for persistent bleeding. I mentioned that if bleeding becomes a recurrent problem on anticoagulation, future options include referral to an ENT for cauterization or consideration of a Watchman device, but we will start with medication first. I outlined the diagnostic plan, which includes baseline blood work, an echocardiogram to assess heart function, and a 2-week Holter monitor to determine the AFib burden. I also briefly mentioned the possibility of a future electrical cardioversion to reset the heart rhythm. I instructed him to complete his blood work and wait for a call from my office before starting Eliquis. Patient was informed and verbally consented to the use of an ambient scribe for clinic note documentation during this visit. Patient Instructions - Go to the lab to get your blood work done as soon as possible. - Do not start the new medication, Eliquis, until our office calls you with the results of your blood work. - Once approved, you will take Eliquis twice a day to help prevent a stroke. - If you get a nosebleed, sit down and pinch your nose firmly for several minutes. If it does not stop, you need to go to the Emergency Room. - You will be contacted to schedule an ultrasound of your heart (echocardiogram) and to receive a 2-week heart monitor (Holter monitor). - You will need to make a follow-up appointment in a couple of months to review your test results. Orders: Orders ECG 14 day holter monitor Today I48.91 - Unspecified atrial fibrillation Prothrombin Time INR Today I48.91 - Unspecified atrial fibrillation CA echo transthoracic complete Today I48.91 - Unspecified atrial fibrillation Complete Blood Count no Diff Today I48.91 - Unspecified atrial fibrillation Comprehensive Met. Panel Today I48.91 - Unspecified atrial fibrillation Medications: New apixaban (Eliquis) 5 mg PO BID 180 tabs 3RF 90 days Coding Level of Care Code New Pt Level 4 (27547) Add On Problem Visit Only Diagnoses Atrial fibrillation by electrocardiogram I48.91 CPT Codes EKG - CPT: 10818-[id number], Complete ([id number])
--- OUTSIDE RECORDS SUMMARY | 2025-11-08 17:28 | XMS_ITS | Patient Health Record ---
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 Role Phone Meli (RETIRED) Eliceo ESPARZA Primary Care Provide r Osvaldo Quesada Unavailable [phone] Allergies No Known Allergies Results Component Value Reference Range Notes Pathology (Not yet reviewed by provider) Interpretation: Performing Lab:[facility], [address] [place] [id number] Notes/Report: Reason For Referral No Information Medications Medication SIG (Take, Route, Frequency, Duration) Notes Start Date End Date Status Atenolol 50 MG Tablet 1 tablet Orally On ce a day; Duration: 30 day(s) Active Omeprazole 20 MG Capsule Delayed Release 1 capsule Orally Once a day Active Tylenol 325 MG Tablet 1 tablet as needed Orally prn Active Chlorthalidone 25 MG Tablet Oral; Duration: 90 Active amLODIPine Besylate 5 MG Tablet Oral; Duration: 90 Active Fenofibrate 54 MG Tablet TAKE 1 TABLET B Y MOUTH EVERY DAY Oral; Duration: 90 Active Losartan Potassium 100 MG Tablet 1 tablet Orally Once a day; Duration: 30 day(s) Active Atorvastatin Calcium 10 MG Tablet 1 tablet Orally Once a day; Duration: 30 day(s) Active Cholestyramine 4 GM/DOSE Powder use anywhere from 1/4 to 1 full scoop in 8 ounces of water or orange juice Orally Once or Twice a day for loose stools and diarrhea; Duration: 30 day(s) 09/25/2024 Active Immunizations Vaccine Route Administration Date Status Comme nts Influenza Unknown 09/03/2018 Administered Influenza Unknown 09/01/2024 Administered Social History Social History Additional Details Category Social Info Options Details Miscellaneous: Marital status: 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: Nonsmoker; 4-5 beers a few t imes a week Nonsmoker; 4-5 beers a few t imes a week Nonsmoker; 4-5 beers a few t imes a week Nonsmoker; 4-5 beers a few t imes a week Nonsmoker; 4-5 beers a few t imes a week Problems Problem Type SNOMED Code ICD Code Onset Dates Problem Status W/U Status Risk Notes Problem Screening for malignant neoplasm of colon (423195900) Encounter for screening for malignant neoplasm of colon (Z12.11) Active confirmed Problem Elevated liver enzymes level (990966729) Elevated liver enzymes (R74.8) Active confirmed Problem Gallstones (850134299) Gallstones (K80.20) Active confirmed Problem History of adenomatous polyp of colon (946428815) Hx of adenomatous colonic polyps (Z86.010) Active confirmed Problem Elevated liver enzymes level (423263074) Elevated liver function tests (R94.5) Active confirmed Problem Essential hypertension (96527472) Hypertension, unspecified type (I10) Active confirmed Problem Intestinal malabsorption (092605905) 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 Encounters Encounter Location Date Provider Diagnosis [facility] Outpatient [address] [place] [id number] 01/22/2025 Osvaldo [place] Colon cancer scree hao [...] Coverage Start Date Coverage End Date MEDICARE [address] [id number] [phone] [id number] DANAY DAVIES Self - patient is the insured [facility] [address] [facility] [phone] [id number] DANAY DAVIES Self - patient is the insured Medical (General) History Medical History History ICD Code Hx of tubular adenomas-2004 and 2008 Hypertension Prostate cancer in 12/2008; h ad rising PSA Rx'd with XRT in Spring 2010; started hormone therapy in [address],DM,CVA,Lung disease,renal dise ase Afib--resolved Hyperlipidemia Irritable bowel [...] surgery Fistulotomy by Dr. Castle 05/2012 [facility] 2018
--- OUTSIDE RECORDS SUMMARY | 2025-11-08 17:28 | XMS_ITS | Patient Health Record ---
Author Organization [facility] tamia Anish Address [address] [facility] [place] [address] Care Team Providers Care Tax Lawyer Name Role Phone Eliceo Garrison MD Primary Care Provider River Laureano Unavailable [phone] Allergies No Known Allergies Reason For Referral [...] Problem Acquired hammer toe of right foot ([id number] 105) Other hammer toe(s) (acquired), right foot [...] Inc [address] [place] [address] [id number] Andrea Wasserman Self - patient is the insured [facility] [address] [facility] [place] [address] [phone] [id number] Andrea Wasserman Self - patient is the insured Medical (General) History Medical History History ICD Code Anxiety Measles Chicken pox Surgical History Surgery Date(Month/Year)
--- OUTSIDE RECORDS SUMMARY | 2025-11-08 17:28 | XMS_ITS | Clinical Summary ---
Author Organization [facility] Address [address] [place] [address] Phone Care Team Providers Care Pump Servicer Name Role Phone Pcp, Unknown Primary Care [...] Upcoming Encounters Date Type Department Care Team ([facility] Contact Info) Description 06/17/2026 8:00 AM EDT Office Visit [facility] [address] [place] [address] Jb Steven MD [address] [facility] [address] [place] [address] [email or web address] Health Maintenance Due Date Last Done Comments [...] Payer (Ef fective 2018-Present) Name:Andrea Wasserman Member ID:[id number] Relation to Subscriber:Self Name:Andrea Wasserman Subscriber ID:[id number] Payer ID:[id number] Group ID:Not on file Type:Medicare Address: [address] [place] [place] [id number] MEDICARE SUPPLEMENT MEDICARE PART A & B Member Subscriber Plan / Payer ( fective 2018-Present) Name:Andrea Wasserman Member ID:[id number] Relation to Subscriber:Self Name:Andrea Wasserman Subscriber ID:[id number] Payer ID:[id number] Group ID:Not on file Type:Medicare Address: [facility] [employer] [facility] [address] MEDICARE SUPPLEMENT MEDICARE PART A & B MEDICARE SUPPLEMENT MEDICARE PART A & B MEDICARE SUPPLEMENT MEDICARE PART A & B [facility] MEDICARE SUPPLEMENT MEDICARE PART A & B [facility] MEDICARE SUPPLEMENT Care Teams Pump Servicer Relationship Specialty Start Date End Date Pcp, Unknown PCP - General 02/23/25 Additional Source Comments The information contained in this document represents components of the legal health record. It is not the complete legal health record.[facility]
== END 2025-11-08 14:36 | disposition home or self-care (01) ==
LOC: HO.HCS 13:58
PROVIDERS: PCP Student in an Organized Health Care Education/Training Program; Visit Provider Internal Medicine
DX: I48.91 Unspecified atrial fibrillation (principal)
CPT/HCPCS: 93010; 99214; G2211

== ENCOUNTER 2025-11-08 13:58 | Outpatient (REF) | payer MEDICARE, OTHER, SELFPAY ==
[2025-11-08 17:17] LABS: Hematocrit 44.9 % (42.0-52.0); Hemoglobin 14.5 g/dl (14.0-18.0); Mean Corpuscular HGB Conc 32.3 g/dl (31.0-36.0); Mean Corpuscular Hemoglobin 29.3 pg (27.0-33.0); Mean Corpuscular Volume 90.7 fL (80.0-98.0); NRBC Abs Auto 0.000 X10*3/uL (0.0-0.012); NRBC Pct Auto 0.0 /100WBC (0.0-0.2); Platelet Count 289 X10*3/uL (160-400); Red Blood Count 4.95 X10*6/uL (4.60-5.80); White Blood Count 7.9 X10*3/uL (4.8-10.8)
[2025-11-08 17:24] LABS: INTERNATIONAL NORM RATIO 0.9 (0.9-1.1); Prothrombin Time 11.1 SEC (11.2-13.5)
[2025-11-08 17:45] LABS: Alanine Aminotransferase 32 U/L (0-40); Albumin Level 4.4 g/dL (3.5-5.0); Alkaline Phosphatase 84 U/L (39-117); Anion Gap 15 (12-20); Aspartate Amino Transferase 22 U/L (5-37); Blood Urea Nitrogen 24 mg/dL (9-16); Calcium 9.4 mg/dL (8.4-10.2); Carbon Dioxide 28 mmol/L (22-29); Chloride 106 mmol/L (96-108); Estimated Glomerular Filt Rate 51; Potassium 3.5 mmol/L (3.3-5.1); Sodium 145 mmol/L (135-145); Total Protein 6.4 g/dL (6.5-8.0)
== END 2025-11-08 13:59 | disposition home or self-care (01) ==
LOC: HO.LAB 13:58
PROVIDERS: PCP Student in an Organized Health Care Education/Training Program; Visit Provider Internal Medicine
DX: I48.91 Unspecified atrial fibrillation (principal)
CPT/HCPCS: 36415; 80053; 85027; 85610; 93005; 99212